=== PATIENT | male | born 1935 | race Caucasian/White ===

== ENCOUNTER 2024-05-05 17:02 | Emergency (ER) | payer OTHER, SELFPAY ==
[2024-05-05 17:11] VITALS: BP 172/73; PULSE 56; RESP 16; TEMP 36.7; O2SAT 97; BMI 25.1
--- NOTE | 2024-05-05 17:37 | EDNOTE_ITS ---
<Statement entered by Isela West MD - 05/08/24 14:04> As co-signing physician, I was present and available for consult prn. I concur with the plan and care as documented by the midlevel provider. Upper Extremity Injury RME/HPI General Chief Complaint: Hand/Wrist Problems Stated Complaint: removed scab on hand and now won't stop bleeding Time Seen by Provider: 05/05/24 17:08 Source: patient Arrival date/time: 05/05/24 17:02 This is a 88-year-old male who presented to the emergency department with complaints of a scab to his right dorsum of hand that has been bleeding for 1 day. He does report that a week ago he had the garbage can disposal slam on his arm causing a small laceration which has been bleeding. Denies any other pain or injury. He does report he is on aspirin 81 mg and drinks occasional 2 drinks alcoholic per night. Mode of arrival: wheelchair Related Data Allergies Allergy/AdvReac Type Severity Reaction Status Date / Time No Known Allergies Allergy Verified 05/05/24 17:05 Review of Systems Review of Systems Systems Reviewed: All systems reviewed, normal except as documented Narrative Review of Systems: Gen: No fever, no chills, no weight loss EYES: No discharge, no visual changes, no pain HEENT: No ear pain, no congestion, no sore throat PULM: No shortness of breath, no cough, no congestion CV: No chest pain, no dyspnea on exertion, no palpitations GI: No nausea, no vomiting, no diarrhea, no pain, no constipation : No frequency, no urgency,? no dysuria Musc/skel: No joint pain, no back pain Skin: No rash? Psyc: No hallucinations, no depression Heme/Lymph: No easy bleeding or bruising tendencies Neuro: No weakness, no headache ED Exam Narrative Physical exam: General: Sittiing in Exam table in no acute distress, answering questions appropriately HENT: normocephalic, atraumatic, EOMI, PERRLA, moist mucous membranes Chest: chest wall is nontender Cardiac: regular rate and rhythm, normal S1 and S2, no murmurs, rubs, or gallops, capillary refill ?2 seconds Pulmonary: clear to auscultation bilaterally, no wheezing, crackles, or rhonchi Abdominal: active bowel sounds, soft, nontender, nondistended Neuro: A&OX3, CN II-XII intact, sensation grossly intact bilaterally in UE and LE. Skin: Right dorsum hand punctacte lac Bleeding, controlled Ext: no lower extremity edema Course Quality Measures none Vital Signs Vital signs: Vital Signs Temperature 98.1 F 05/05/24 17:11 Pulse Rate 56 L 05/05/24 17:11 Respiratory Rate 16 05/05/24 17:11 Blood Pressure 172/73 H 05/05/24 17:11 Pulse Oximetry (%) 97 05/05/24 17:11 Oxygen Delivery Method Room Air 05/05/24 17:11 Extremity Injury MDM Narrative MDM Narrative:: Using sterile technique, patients wound cleansed, no anesthesia used. 0.5cm superficial wound clease with 150ml of normal saline, alllowed to dry, then used 3 steri strips with Dermabond for complete closure of wound. Patient tolerated procedure well. Patient data External records reviewed:: [facility] previous records Clinical information provided by:: patient Social determinants that could affect healthcare access:: none Patient has the following chronic illnesses:: no How is presenting disease/condition affected by chronic disease/condition?: no chronic disease Evaluation data The following diagnostics were reviewed and interpreted by me:: other (specify) Lab and/or radiology exams considered but not ordered:: no Interpretation Summary: no Medications / Prescriptions Medications or Prescriptions considered but not ordered:: no Medication administrations:: no Consultations Consultation(s) initiated? (list below): No Diagnosis Upper Extremity Injury Differential Diagnosis: sprain and strain of wrist, fracture of wrist and finger sprain Most likely diagnosis given after review of the tests above:: lac, bleeding Admission Indicated Admission indicated?: not indicated Admission Request Was there a request for admission?: No Disposition Plan Disposition Plan: Discharge Discharge Attestation Discharge Attestation: The patient and all family members were given an opportunity to ask questions and understood the discharge instructions. Discharge instructions specifically effects, indications for sooner follow up or return to the emergency department, and the expected course of current diagnosis. Patient condition: Stable Discharge Plan Plan Patient Disposition: HOME (Self Care) Patient condition on transfer: Stable Problem List Clinical Impression: Laceration of hand Patient/Caregiver Discharge Instructions Discharge Activity: activity as tolerated Education Materials: ED Laceration Small or ... Additional Instructions: Please do not pick or peel at the skin glue or Steri-Strips they will fall on its own. Follow-up with your primary doctor Return to the emergency department with any worsening symptoms any condition. Print Language: Latvian Stand Alone Forms: [facility] Award Info., Patient Portal Info Letter
== END 2024-05-05 18:06 | disposition home or self-care (01) ==
LOC: SERX 19:06
PROVIDERS: Emergency Provider Emergency Medicine
DX: S61.411A Laceration without foreign body of right hand, initial encounter (principal); X58.XXXA Exposure to other specified factors, initial encounter
CPT/HCPCS: 12001; 99283

== ENCOUNTER 2025-01-17 11:33 | Inpatient (IN) | payer OTHER, MEDICARE, SELFPAY ==
[2025-01-17] VITALS (13 sets, daily range): BP systolic 152–191; BP diastolic 58–88; PULSE 57–115; RESP 16–97; TEMP 36.8–38.8; O2SAT 91–96; BMI 24.3
--- NOTE | 2025-01-17 11:54 | PD.EDPED ---
ED General RME/HPI General Chief complaint: Nausea/Vomiting/Diarrhea Stated complaint: FEVER Time Seen by Provider: 01/17/25 12:02 Arrival date/time: 01/17/25 11:33 Related Data Allergies Allergy/AdvReac Type Severity Reaction Status Date / Time No Known Allergies Allergy Verified 05/05/24 17:05 Course Orders Category Date Time Status Bedside COVID-19 Antigen Test NOW Care 01/17/25 12:19 Active Bedside Influenza A&B Antigen Test NOW Care 01/17/25 12:20 Active EKG (ED ONLY) *Do not use* NOW Care 01/17/25 12:20 Active CXRP [XR chest 1V portable] Stat Exams 01/17/25 12:18 Ordered EKG (ED Only) Stat Exams 01/17/25 12:20 Ordered CBC Stat Lab 01/17/25 12:18 Ordered CMP [Comprehensive Metabolic Panel] Stat Lab 01/17/25 12:19 Ordered Lactic Acid [Lactate (Lactic Acid)] Stat Lab 01/17/25 12:19 Ordered Mag [Magnesium] Stat Lab 01/17/25 12:19 Ordered Troponin I Stat Lab 01/17/25 12:19 Ordered Urinalysis Stat Lab 01/17/25 12:19 Ordered Ondansetron Inj [Zofran Inj] Med 01/17/25 12:20 Once 4 mg IVP X1 ONE Vital Signs Vital signs: Vital Signs Temperature 99.5 F 01/17/25 11:38 Pulse Rate 113 H 01/17/25 11:38 Respiratory Rate 17 01/17/25 11:38 Blood Pressure 153/81 H 01/17/25 11:38 Pulse Oximetry (%) 95 01/17/25 11:38 Oxygen Delivery Method Room Air 01/17/25 11:38 MDM (ped) Medications Medication administrations:: Medication Administration History Ondansetron HCl (Ondansetron Inj 2 Mg/Ml Inj 2 Ml) 4 mg IVP X1 ONE; Protocol Stop: 01/17/25 12:21 Discharge Plan Patient/Caregiver Discharge Instructions Print Language: Irish
--- NOTE | 2025-01-17 12:18 | XR_ITS ---
EXAMINATION: AP chest single view TECHNIQUE: AP portable semiupright chest single view Date and time: January 17, 2025, 12:21 p.m. INDICATIONS: Cough and shortness of breath beginning 3 months ago FINDINGS: Mild prominence left ventricle CABG Mild vascular congestion. No lobar pneumonia or pulmonary edema IMPRESSION: Mild vascular congestion
--- NOTE | 2025-01-17 12:20 | EKG_ITS ---
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
--- NOTE | 2025-01-17 12:23 | PD.EDFEVER ---
ED Fever RME/HPI General Chief Complaint: Nausea/Vomiting/Diarrhea Stated Complaint: FEVER Time Seen by Provider: 01/17/25 12:02 Source: patient, RN notes reviewed and old records reviewed Arrival date/time: 01/17/25 11:33 Mode of arrival: EMS Limitations: no limitations RME / HPI complaint: fever Related Data Allergies Allergy/AdvReac Type Severity Reaction Status Date / Time No Known Allergies Allergy Verified 05/05/24 17:05 Review of Systems Review of Systems Systems Reviewed: All systems reviewed, normal except as documented Constitutional Constitutional: Reports as per HPI and Reports fever(s) Gastrointestinal Gastrointestinal: Reports system reviewed and no additional complaints, except as documented Genitourinary Genitourinary: Reports system reviewed and no additional complaints, except as documented Musculoskeletal Musculoskeletal: Reports system reviewed and no additional complaints, except as documented Neurologic Neurologic: Reports system reviewed and no additional complaints, except as documented Past Medical History Past Medical History CARDIAC: Positive Cardiac Disorders and Hypertension; Negative Congestive Heart Failure RESPIRATORY: Negative Chronic Obstructive Pulmonary Disease (COPD) GENITOURINARY: Positive Renal Disease ENDOCRINE: Negative Diabetes Mellitus Type 1 or Diabetes Mellitus Type 2 OTHER HISTORY: Positive Chemotherapy and Cancer (leukemia) Surgical History SURGICAL: Positive Cardiac Surgery, 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 Social History SMOKING STATUS: Never smoker Physical Exam General Limitations: no limitations General appearance: alert and in distress Head Head exam: atraumatic Eye Eye exam: Present normal appearance, PERRL and EOMI; Absent scleral icterus ENT ENT exam: Present normal exam, normal oropharynx and mucous membranes dry Neck Neck exam: Present normal inspection, full ROM and trachea midline Chest Chest inspection: Present normal inspection and symmetric chest wall rise Respiratory Respiratory exam: Present normal lung sounds bilaterally Cardiovascular Cardiovascular exam: Present normal rhythm, tachycardia and normal heart sounds Abdominal Exam Abdominal exam: Present soft and normal bowel sounds; Absent distention, tenderness, guarding or rebound Extremities Exam Extremities exam: Present normal inspection and full ROM Back Exam Back exam: Present normal inspection and full ROM Neurological Exam Neurological exam: Present alert and oriented X3; Absent motor sensory deficit Psychiatric Psychiatric exam: Present normal affect and normal mood Skin Skin exam: Present warm, dry and intact; Absent normal color, rash or cyanosis ED Exam General Limitations: Present no limitations General appearance: Present alert and in distress Head Head exam: Present atraumatic Eye Eye exam: Present normal appearance, PERRL and EOMI; Absent scleral icterus ENT ENT exam: Present normal exam, normal oropharynx and mucous membranes dry Neck Neck exam: Present normal inspection, full ROM and trachea midline Chest Chest inspection: Present normal inspection and symmetric chest wall rise Respiratory Respiratory exam: Present normal lung sounds bilaterally Cardiovascular Cardiovascular exam: Present normal rhythm, tachycardia and normal heart sounds Abdominal Exam Abdominal exam: Present soft and normal bowel sounds; Absent distention, tenderness, guarding or rebound Extremities Exam Extremities exam: Present normal inspection and full ROM Back Exam Back exam: Present normal inspection and full ROM Neurological Exam Neurological exam: Present alert and oriented X3; Absent motor sensory deficit Psychiatric Psychiatric exam: Present normal affect and normal mood Skin Skin exam: Present warm, dry and intact; Absent normal color, rash or cyanosis Course Course Course Narrative: 1511: Sepsis alert initiated. Orders made at this time are congruent with ED Adult Sepsis Order List. Re-evaluation is to be completed. Sepsis IVF not administered due to the patient being in CHF. Patient received 500mL NS IVF (infused at 1715). Quality Measures Possible source: unknown Blood cultures ordered: yes Antibiotic ordered: Yes Pertinent labs: 01/17/25 12:55 Lactic Acid 1.2 mMol/L (0.4-2.0) Procalcitonin 1.16 H ng/ml (0.0-0.49) sepsis Orders Category Date Time Status Admit to Inpatient Status Routine Admission 01/17/25 17:28 Active Patient Condition Routine Admission 01/17/25 17:27 Ordered Activity as Tolerated Routine Care 01/17/25 17:31 Ordered Bedside COVID-19 Antigen Test NOW Care 01/17/25 12:19 Active COVID-19 Screening Questionnaire NOW Care 01/17/25 16:01 Active Continuous Pulse Oximetry NOW Care 01/17/25 17:33 Active Decision to Admit X1 Care 01/17/25 16:00 Completed EKG (ED ONLY) *Do not use* NOW Care 01/17/25 12:20 Completed Insert IV NOW Care 01/17/25 16:16 Active Notify provider NEEDED Care 01/17/25 17:27 Active Obtain weight NOW Care 01/17/25 17:27 Active Straight [In and Out Catheter] X1 Care 01/17/25 12:22 Active Strict Intake and Output Routine Care 01/17/25 17:35 Ordered CXRP [XR chest 1V portable] Stat Exams 01/17/25 12:18 Completed EKG (ED Only) Stat Exams 01/17/25 12:20 Draft ABG [Arterial Blood Gas] Routine Lab 01/17/25 15:32 Completed BNP [B-Type Natriuretic Peptide] Routine Lab 01/17/25 12:55 Completed Blood Culture (Lab) Stat Lab 01/17/25 16:10 Received CBC AM DRAW Lab 01/18/25 05:00 Ordered CBC AM DRAW Lab 01/19/25 05:00 Ordered CBC AM DRAW Lab 01/20/25 05:00 Ordered CBC Stat Lab 01/17/25 12:55 Completed CMP [Comprehensive Metabolic Panel] Stat Lab 01/17/25 12:55 Completed Comprehensive Metabolic Panel AM DRAW Lab 01/18/25 05:00 Ordered Comprehensive Metabolic Panel AM DRAW Lab 01/19/25 05:00 Ordered Comprehensive Metabolic Panel AM DRAW Lab 01/20/25 05:00 Ordered Creatinine,Random Urine Routine Lab 01/17/25 15:57 Completed Electrolytes, Urine Random Routine Lab 01/17/25 15:57 Completed Influenza A & B Rapid Panel Stat Lab 01/17/25 13:37 Completed Lactic Acid [Lactate (Lactic Acid)] Stat Lab 01/17/25 12:55 Completed Mag [Magnesium] Stat Lab 01/17/25 12:55 Completed Magnesium AM DRAW Lab 01/18/25 05:00 Ordered Magnesium AM DRAW Lab 01/19/25 05:00 Ordered Magnesium AM DRAW Lab 01/20/25 05:00 Ordered Phosphorous AM DRAW Lab 01/18/25 05:00 Ordered Phosphorous AM DRAW Lab 01/19/25 05:00 Ordered Phosphorous AM DRAW Lab 01/20/25 05:00 Ordered Prothrombin Time with INR AM DRAW Lab 01/18/25 05:00 Ordered Sed Rate (ESR) Stat Lab 01/17/25 12:55 Completed Thyroid Stimulating Hormone AM DRAW Lab 01/18/25 05:00 Ordered Troponin I Stat Lab 01/17/25 12:55 Completed Urinalysis Stat Lab 01/17/25 15:57 Completed Acetaminophen Tab [Tylenol Tab] Med 01/17/25 17:27 Active 650 mg PO Q6H PRN Acetaminophen Tab [Tylenol Tab] Med 01/17/25 15:59 Discontinued 975 mg PO X1 ONE Docusate Sod [Colace] Med 01/17/25 17:45 Active 100 mg PO QDAY Doxycycline Inj [Vibramycin Inj] 100 mg Med 01/17/25 21:00 Active Sodium Chloride 0.9% (Pop) [NS 0.9% mini bag] 100 ml IV BID Famotidine [Pepcid] Med 01/17/25 21:00 Active 20 mg PO BID Heparin Inj Med 01/17/25 21:00 Active 5,000 unit SC Q12HR Ondansetron Inj [Zofran Inj] Med 01/17/25 17:33 Active 4 mg IVP Q6H PRN Ondansetron Inj [Zofran Inj] Med 01/17/25 12:20 Discontinued 4 mg IVP X1 ONE Piper/Tazo 3.375 gm Premix [Zosyn] Med 01/17/25 16:00 Discontinued 3.375 gm in 50 ml IV X1 Sodium Chloride 0.9% 500 ml [Ns] 500 ml Med 01/17/25 15:59 Discontinued IV 999 mls/hr cefTRIAXone/D5w 1gm IV premix [Rocephin/D5w 1gm IV Med 01/18/25 09:00 Active premix] 1 gm in 50 ml IV QDAY cefTRIAXone/D5w 1gm IV premix [Rocephin/D5w 1gm IV Med 01/17/25 15:58 Discontinued premix] 1 gm in 50 ml IV X1 Code Status Routine Oth 01/17/25 17:27 Ordered Oxygen Delivery PRN RT 01/17/25 17:27 Active Vital Signs Vital signs: Vital Signs Temperature 99.5 F 01/17/25 11:38 Pulse Rate 113 H 01/17/25 11:38 Respiratory Rate 17 01/17/25 11:38 Blood Pressure 153/81 H 01/17/25 11:38 Pulse Oximetry (%) 95 01/17/25 11:38 Oxygen Delivery Method Room Air 01/17/25 11:38 Fever MDM Narrative MDM Narrative:: Safety net established and ECG retrieved showing no evidence of STEMI or significant ST depressions, q waves, or T wave inversion.? Labs ordered to include CBC to look for anemia, CMP to look for electrolyte normality, urinalysis with source of infection, chest x-ray to rule out pneumonia. Please see HPI and review of systems for further need for chest x-ray Patient is started on IV fluids for dehydration Zofran for nausea. Differential diagnosis-see MDM time - Sepsis Alert Patient data External records reviewed:: [facility] previous records (Seen and April 2024 for laceration to his hand.) Clinical information provided by:: patient Social determinants that could affect healthcare access:: none Patient has the following chronic illnesses:: See [facility] How is presenting disease/condition affected by chronic disease/condition?: exacerbated by Evaluation data The following diagnostics were reviewed and interpreted by me:: lab results, radiology exam(s) and EKG tracing(s) Lab and/or radiology exams considered but not ordered:: None Interpretation Summary: See [facility] Medications / Prescriptions Medications or Prescriptions considered but not ordered:: None Medication administrations:: Medication Administration History Acetaminophen (Acetaminophen 325 Mg Tablet) 650 mg PO Q6H PRN PRN Reason: Fever >100.4, mild pain 1-3 Stop: 02/16/25 17:26 Hydrocodone Bitart/Acetaminophen (Hydrocodone/Apap 5/325 Tablet) 1 tab PO X1 PRN PRN Reason: mod - severe pain (4-10) Stop: 01/22/25 17:43 Docusate Sodium (Docusate Sod 100 Mg Capsule) 100 mg PO QDAY [facility]; Protocol Stop: 02/16/25 17:44 Last Admin: 01/17/25 18:37 Dose: 100 mg Documented By: ANNELIESE Famotidine (Famotidine 20 Mg Tablet) 20 mg PO BID [facility] Stop: 02/16/25 20:59 Heparin Sodium (Porcine) (Heparin Sod Inj 5000 Unit/Ml Vial) 5,000 unit SC Q12HR YELENA Stop: 01/31/25 20:59 Ceftriaxone Sodium/Dextrose (Rocephin/D5w 1gm Iv Premix) 1 gm in 50 mls @ 100 mls/hr IV QDAY [facility] Stop: 01/25/25 08:59 Doxycycline Hyclate 100 mg/ (Sodium Chloride) 100 mls @ 100 mls/hr IV BID [facility] Stop: 01/24/25 20:59 Ondansetron HCl (Ondansetron Inj 2 Mg/Ml Inj 2 Ml) 4 mg IVP Q6H PRN; Protocol PRN Reason: NAUSEA OR VOMITING Stop: 02/16/25 17:32 Discontinued Medications Acetaminophen (Acetaminophen 325 Mg Tablet) 975 mg PO X1 ONE Stop: 01/17/25 16:00 Last Admin: 01/17/25 16:17 Dose: 975 mg Documented By: ANNELIESE Amlodipine Besylate (Amlodipine Besylate 5 Mg Tablet) 5 mg PO X1 YELENA Stop: 01/17/25 17:46 Ceftriaxone Sodium/Dextrose (Rocephin/D5w 1gm Iv Premix) 1 gm in 50 mls @ 100 mls/hr IV X1 ONE Stop: 01/17/25 16:27 Last Infusion: 01/17/25 17:13 Dose: Infused Documented By: Admin: 01/17/25 16:20 Dose: 100 mls/hr Documented By: ANNELIESE Sodium Chloride (Ns) 500 mls @ 999 mls/hr IV .Q31M ONE Stop: 01/17/25 16:29 Last Infusion: 01/17/25 17:15 Dose: Infused Documented By: Admin: 01/17/25 16:20 Dose: 999 mls/hr Documented By: ANNELIESE Piperacillin/Tazobactam/Dextrose (Zosyn) 3.375 gm in 50 mls @ 100 mls/hr IV X1 ONE; Protocol Stop: 01/17/25 16:29 Last Infusion: 01/17/25 18:13 Dose: Infused Documented By: Admin: 01/17/25 17:18 Dose: 100 mls/hr Documented By: ANNELIESE Levothyroxine Sodium (Levothyroxine Sodium 25 Mcg Tablet) 75 mcg PO X1 ONE Stop: 01/17/25 17:45 Last Admin: 01/17/25 18:36 Dose: 75 mcg Documented By: ANNELIESE Metoprolol Succinate (Metoprolol Succinate Xl 25 Mg Tabcr) 50 mg PO X1 ONE Stop: 01/17/25 17:46 Last Admin: 01/17/25 18:37 Dose: 50 mg Documented By: ANNELIESE Ondansetron HCl (Ondansetron Inj 2 Mg/Ml Inj 2 Ml) 4 mg IVP X1 ONE; Protocol Stop: 01/17/25 12:21 Last Admin: 01/17/25 12:47 Dose: 4 mg Documented By: BY Diagnosis Fever Differential Diagnosis: fever of unknown origin, gastroenteritis, community acquired pneumonia, viral infection, sepsis, influenza and other (Electrolyte abnormality) Critical Care Time Critical Care Time Critical Care Time: Yes Total Critical Care Time (min.): 40 Attestation: The high probability of sudden, clinically significant deterioration in the patient?s condition required the highest level of my preparedness to intervene urgently. The services I provided to this patient were to treat and/or prevent clinically significant deterioration. Services included the following: chart data review, reviewing nursing notes and/or old charts, documentation time, workday consultant collaboration regarding findings and treatment options, medication orders and management, direct patient care, vital sign assessments and ordering, interpreting and reviewing diagnostic studies and lab tests. Aggregate critical care time includes only time during which I was engaged in work directly related to the patient?s care, as described above, whether at bedside or elsewhere in the Emergency Department. It did not include time spent performing other reported procedures or the services of residents, students, nurses or physician assistants.
[2025-01-17] MEDS: ONDANSETRON INJ 2 MG/ML INJ 2 ML 4 MG IVP (12:47)
[2025-01-17 13:09] LABS: Lactate (Lactic Acid) 1.2 mMol/L (0.4-2.0)
[2025-01-17 13:12] LABS: Basophils # (Auto) 0.0 Thou/mm3 (0.0-0.2); Basophils % (Auto) 0 % (0-2.5); Eosinophils # (Auto) 0.0 Thou/mm3 (0.0-0.5); Eosinophils % (Auto) 0 % (0-10); Hematocrit 34.5 % (41.0-53.0); Hemoglobin 10.6 g/dL (13.5-16.0); Immature Granulocytes Auto 0.07 Thou/mm3 (0.00-0.00); Lymphocytes # (Auto) 0.1 Thou/mm3 (1.0-4.8); Lymphocytes % (Auto) 1 % (10-50); Mean Corpuscular HGB Conc 30.7 g/dl (31.0-37.0); Mean Corpuscular Hemoglobin 25.0 pg (25.0-35.0); Mean Corpuscular Volume 81 fL (80-100); Monocytes # (Auto) 0.7 Thou/mm3 (0.0-0.8); Monocytes % (Auto) 6 % (0-12); Neutrophils # (Auto) 12.1 Thou/mm3 (1.8-7.7); Neutrophils % (Auto) 93 % (37-80); Nucleated Red Blood Cell # 0.00 Thou/mm3 (0.00-0.00); Nucleated Red Blood Cell % 0 /100 WBC (0); Platelet Count 225 Thou/mm3 (140-440); RDW Standard Deviation 65.3 fL (35.1-43.9); Red Blood Count 4.24 Miln/mm3 (4.50-5.90); White Blood Count 13.0 Thou/mm3 (3.8-10.6)
[2025-01-17 13:42] LABS: Alanine Aminotransferase < 7 U/L (10-49); Albumin, Serum 3.6 gm/dL (3.4-4.8); Albumin/Globulin Ratio 1.7 (1.2-2.2); Alkaline Phosphatase 50 U/L (46-116); Anion Gap 13 (7-16); Aspartate Amino Transferase 18 U/L (0-34); BUN/Creatinine Ratio 14 Ratio (12-20); Bilirubin,Total 0.4 mg/dL (0.3-1.2); Blood Urea Nitrogen 46 mg/dL (9-23); Calcium 9.1 mg/dL (8.3-10.6); Calcium (Corrected) 9.4 mg/dL (8.5-10.1); Carbon Dioxide 23.8 mMol/L (20.0-31.0); Chloride 102 mMol/L (98-107); Creatinine (Component) 3.2 mg/dL (0.6-1.3); Estimated Creatinine Clearance 14.6 mL/min (>60); Globulin 2.1 gm/dL (2.3-3.5); Glucose 109 mg/dL (74-106); Magnesium 1.5 mg/dL (1.6-2.6); Osmolality,Calculated 290 (275-295); Potassium 4.1 mMol/L (3.4-5.1); Sodium 139 mMol/L (136-145); Total Protein 5.7 gm/dL (5.7-8.2); Troponin I < 0.020 ng/mL (0.0-0.045); eGFR 18 See Note
[2025-01-17 14:17] LABS: Influenza A Ag Negative; Influenza B Ag Negative
[2025-01-17 15:38] LABS: Base Excess 0 (-3-3); HCO3 23 mEq/L (20-26); Inspired Oxygen, FIO2 21 %; O2 Saturation 93 % (91-98); PCO2 34 mmHg (32.0-48.0); PO2 65 mmHg (83-108); pH, Arterial 7.44 (7.35-7.45)
[2025-01-17 15:39] LABS: Allen Test Performed/OK; Puncture Site Right Radial
[2025-01-17 16:00] LABS: Collection Type, Urine Voided; WBC,Urine 0 /hpf (0-5)
[2025-01-17 16:09] LABS: B-Type Natriuretic Peptide 621 pg/mL (0-100)
[2025-01-17] MEDS: ACETAMINOPHEN 325 MG TABLET 975 MG PO (16:17)
[2025-01-17] MEDS: SODIUM CHLORIDE 0.9% 500 ML 500 ML 999 ML IV (16:20)
[2025-01-17] MEDS: cefTRIAXone/D5w 1gm IV premix 1 GM/50 ML BAG IV (16:20)
[2025-01-17 16:28] LABS: Bilirubin,Urine Negative (Negative); Blood,Urine Negative (Negative); Clarity,Urine Clear (Clear/Hazy); Color,Urine Lt-Yellow (Lt Yel-Yel); Glucose, Urine Negative (Negative); Hyaline Casts,Urine < 1 /hpf (0-1); Ketones,Urine Negative (Negative); Leukocyte Esterase,Urine Negative (Negative); Nitrite,Urine Negative (Negative); PH,Urine 6.5 (5.0-7.0); Protein,Urine 2+ (Neg - Trace); RBC,Urine 1 /hpf (0-3); Specific Gravity,Urine 1.017 (1.001-1.035); Squamous Epithelial Cell,Urine 1 /hpf (0-5); Urobilinogen,Urine Negative mg/dL (0.0-1.0)
[2025-01-17] MEDS: PIPER/TAZO 3.375 GM PREMIX 3.375 GM/50 ML BAG IV (17:18)
--- NOTE | 2025-01-17 17:27 | ESHP_ITS ---
<Statement entered by Barber Garcia MD - 01/17/25 20:29> I saw and examined patient personally and supervised PGY 1 resident, Dr. Vigil with formulating a management plan. I agree with the documentation with the exceptions as listed below. Patient is a 89-year-old male past medical history significant for primary hypertension, hypothyroidism, CKD follows with Dr. Gloria, myelodysplastic syndrome follows with Dr. Olivares,? CHF, paroxysmal atrial fibrillation amiodarone who presented today with a chief complaint of chills and left arm pain. Problem list: 1. SIRS 2. Myelodysplastic syndrome 3. Paroxysmal atrial fibrillation 4. CKD 5. Hypothyroidism 6. CAD s/p CABG 7. Chronic alcohol use Patient said he developed violent rigors this a.m. which woke him up from sleep and this prompted him to present to the emergency department. Upon arrival patient was hypertensive BP 153/81, pulse 113 and temp 101.9. Labs showed WBC 13, Hb 10.6, BUN 46, CR 3.2 BNP 621. His urinalysis was bland. Abdominal ultrasound was significant for mild hepatomegaly and moderate stool in colon. Chest x-ray showed mild vascular congestion bilaterally. Patient's currently has a Holter monitor for the past week which was placed by his outpatient clay structure builder and servicer Dr. Benjamin for atrial fibrillation. He also follows up with heme oncologist Dr. Olivares and has monthly infusions for the first 5 days of the month since 5 years. This is for his myelodysplastic syndrome. He also follows up with manager life, Dr. Gloria for weekly Retacrit due to his anemia. Incidentally on November 14 patient had a ground-level fall and presented to the ED. X-rays L-spine at that time showed compression fracture of L2. Severe multilevel DJD. 4 mm anterior subluxation of L5 on L5. Patient also endorses drinking 2 beers per night. We will treat with pain control for his fracture and place lorazepam as needed possible withdrawal. Patient also started on thiamine 100 mg p.o. daily. Empirically patient will be started on ceftriaxone and doxycycline for possible community-acquired pneumonia. We also ordered a cocci serology as patient is immunosuppressed and has fevers with no definitive source at this point. Blood cultures were ordered. Plan of care discussed with Attending Dr. Abelardo Garcia MD PGY 2 Disclaimer: This note was dictated by speech recognition. Minor errors in internal controls consultant may be present due to voice recognition software. Documentation for date of: 01/17/25 HPI History of Present Illness Chief complaint: fever History of present illness: 89 yo male PMHx: HTN, hypothyroidism, CKD, MDS and CHF? presents to ED with nausea, vomiting, and diarrhea. In the ED, Vitasl showing hypertensive at 160/60, labs notable WBC 13.0, Hbg 10.6, Hct 34.5. D-dimer 2690. BMP BUN 46, Cr 3.2. eGFR 18. CRP 1.5, Pro-Richard 1.16. BNP 621. 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 Patient admitted for ANTHONY. Information Technology Technician: Dr. Rangel. Hooker Machine Tender Dr. Benjamin. Oncologist: Dr. Olivares. Meds: norvasc 5 daily, metop succ XL 50 daily, levothyroxine 75 mcg QAM, lisinopril 40 BID, furosemide 40 every other daily and norco 5 ALL: NKDA SH: drinks occionally 2 beers a night ROS: nausea, vomiting, diarrhea Review of Systems Review of Systems Systems Reviewed: All systems reviewed, normal except as documented Narrative Review of Systems: Refer to HPI Exam Vital Signs Temp Pulse Resp BP Pulse Ox O2 Del Method 99.8 F 101 H 18 171/64 H 92 L Room Air 01/17/25 17:18 01/17/25 16:01 01/17/25 16:01 01/17/25 16:01 01/17/25 16:01 01/17/25 16:01 Narrative Exam General: No acute distress, well nourished Eye: PERRL, EOMI, normal conjunctiva, no scleral icterus HENT: Normocephalic, atraumatic, normal hearing, pink and moist mucous membranes, no oral lesions in mouth, throat shows no erythema Neck: Supple, non-tender, no JVD, no lymphadenopathy Lungs: Clear to auscultation bilaterally, non-labored respirations, symmetric chest rise, no use of accessory muscles Heart: Normal S1 and S2, no S3 or S4 appreciated. Normal rate and regular rhythm, no murmurs, rubs gallops, or edema. Peripheral pulses intact bilaterally, capillary refill brisk distally Abdomen: Soft, TTP LUQ, non-distended, normal bowel sounds. No guarding or rebound tenderness. Musculoskeletal: Normal range of motion and strength. LUE shows redness and swelling alogn with induration near medial elbow. Skin: Skin is warm, dry,bilateral hyperpigmentation of upper limbs Neurologic: Alert, awake and oriented x3. CN II-XII grossly intact. No focal neuro deficits. No signs of meningeal irritation noted. Psychiatric: Cooperative, appropriate mood and affect Results: Labs 01/19/25 05:15 01/19/25 05:15 Labs: Short CBC 01/17/25 Range/Units 12:55 WBC 13.0 H (3.8-10.6) Thou/mm3 Hgb 10.6 L (13.5-16.0) g/dL Hct 34.5 L (41.0-53.0) % Plt Count 225 (140-440) Thou/mm3 BMP 01/17/25 12:55 Sodium 139 Potassium 4.1 Chloride 102 Carbon Dioxide 23.8 BUN 46 H Creatinine 3.2 H Glucose 109 H Calcium 9.1 Cardiac Enzymes 01/17/25 Range/Units 12:55 Troponin I < 0.020 (0.0-0.045) ng/mL Liver Function 01/17/25 Range/Units 12:55 Total Bilirubin 0.4 (0.3-1.2) mg/dL AST 18 (0-34) U/L ALT < 7 L (10-49) U/L Alkaline Phosphatase 50 (46-116) U/L Albumin 3.6 (3.4-4.8) gm/dL Urine 01/17/25 Range/Units 15:57 Urine Color Lt-Yellow (Lt Yel-Yel) Urine Clarity Clear (Clear/Hazy) Urine pH 6.5 (5.0-7.0) Ur Specific Robbins 1.017 (1.001-1.035) Urine Protein 2+ A (Neg - Trace) Urine Glucose (UA) Negative (Negative) ABG Interpretation ABG results: 01/17/25 15:32 ABG pH 7.44 ABG pCO2 34 ABG pO2 65 L ABG HCO3 23 ABG O2 Saturation 93 ABG Base Excess 0 Quality Measures Quality Measures none Advance care planning discussed with:: patient Medications Home Medications and Allergies Home Medications ?Medication ?Instructions ?Recorded ?Confirmed ?Type amlodipine 5 mg tablet 5 mg PO QDAY 01/17/25 History atorvastatin 40 mg tablet 40 mg PO QDAY 01/17/2501/17 History furosemide 40 mg tablet 40 mg PO QDAY 01/17/2501/17 History hydrocodone 5 mg-acetaminophen 325 1 tab PO PRN PRN pa in (scale score 01/17/25 01/17/25 History mg tablet 4-6) levothyroxine 75 mcg tablet 75 mcg PO QDAY 01/17/25 History lisinopril 40 mg tablet 40 mg PO QDAY 01/17/2501/17 History sodium bicarbonate 650 mg tablet 650 mg PO BID 5 01/17/25 History Allergies Allergy/AdvReac Type Severity Reaction Status Date / Time No Known Allergies Allergy Verified 05/05/24 17:05 Visit Medications Discontinued Medications Acetaminophen (Acetaminophen 325 Mg Tablet) 975 mg PO X1 ONE Stop: 01/17/25 16:00 Last Admin: 01/17/25 16:17 Dose: 975 mg Ceftriaxone Sodium/Dextrose (Rocephin/D5w 1gm Iv Premix) 1 gm in 50 mls @ 100 mls/hr IV X1 ONE Stop: 01/17/25 16:27 Last Infusion: 01/17/25 17:13 Dose: Infused Sodium Chloride (Ns) 500 mls @ 999 mls/hr IV .Q31M ONE Stop: 01/17/25 16:29 Last Infusion: 01/17/25 17:15 Dose: Infused Piperacillin/Tazobactam/Dextrose (Zosyn) 3.375 gm in 50 mls @ 100 mls/hr IV X1 ONE; Protocol Stop: 01/17/25 16:29 Last Admin: 01/17/25 17:18 Dose: 100 mls/hr Ondansetron HCl (Ondansetron Inj 2 Mg/Ml Inj 2 Ml) 4 mg IVP X1 ONE; Protocol Stop: 01/17/25 12:21 Last Admin: 01/17/25 12:47 Dose: 4 mg Assessment & Plan Plan 89 yo male PMHx: HTN, hypothyroidism, CKD, MDS and CHF? presents to ED with nausea, vomiting, and diarrhea. Patient admitted for ANTHONY. #SIRS Postitive #ANTHONY on CKD In ED, labs showed WBC 13.0, BUN 46, Cr 3.2 Unsure of baseline Information Technology Technician: Dr. Rangel Inflammatory markers increased, CRP 1.5, Pro-Richard 1 - qAM CMP - started rocephin 1g daily, doxy 100 IV BID #Cellulitis? In ED, UE shows induration and swelling - US shows no signs of DVT - CTM #CHF? Hooker Machine Tender Dr. Benjamin BNP 624 K > 4, Mg > 2 Strict I&Os - restarted metop succ XL - fluid restriction 1500mL - CTM clinically - pending echo #A-fib current home med amio 200 PO daily - waiting on med rec, hold amio - pending TSH - considering cards consult #HTN - restarted meds metop succ XL 50mg daily #hypothyroidism - restarted levothyroxine 75mcg #MDS Oncologist: Dr. Olivares. - qAM CBC - reach out to oncologist #alcohol misuse disorder - thiamine 100 PO daily Checklist: Admit: Med Tele Diet: cardiac PUD PPX: famotidine 20 BID VTE PPX: hep 5K BID Code: FULL CODE Case was discussed with Attending Dr. Zhou, and Senior Resident Dr. Jose Vigil DO PGY-1 Attending Provider Attestation/Addendum I or my resident physicians have discussed care with the ED physician and I have made the decision to admit. I have discussed and was present for the essential components of the history, physical examination, diagnosis, and treatment plan with the resident. I agree with the patient's care as documented by the resident and amended herein by me. Kavon Zhou DO. Although this document has been carefully reviewed, there may still be some phonetic and other typographical errors. These errors are purely grammatical due to imperfections in the software program and should not be construed in any way to compromise the substance of the patient's medical care during this visit.
--- NOTE | 2025-01-17 17:41 | XR_ITS ---
Examination: Venous duplex upper extremity sonogram, bilateral. Date and time of exam: January 17, 2025, 1745 hours INDICATIONS: Arm pain beginning today Technique: Multiple sonographic images of the deep venous system have been obtained. B-mode/2-D grayscale imaging of vascular structures and Doppler spectral analysis (waveforms) and color performed Both legs are examined. Findings: Deep venous systems do not demonstrate abnormal echogenicity. All visualized deep veins exhibit compressibility. All visualized deep veins exhibit augmentation. Impression: Negative for deep vein thrombosis
--- NOTE | 2025-01-17 17:53 | XR_ITS ---
Examination: Abdomen sonogram, complete Date and time of exam: January 17, 2025, 1835 hours INDICATIONS: Chronic kidney disease diagnosis years, history splenomegaly. Technique: Multiple real-time grayscale transabdominal sonographic images of the abdomen have been obtained. 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
[2025-01-17 18:16] LABS: C-Reactive Protein 1.5 mg/dL (0.0-0.9); Procalcitonin 1.16 ng/ml (0.0-0.49)
[2025-01-17 18:23] LABS: Sed Rate (ESR) 30 mm/hr (0-20)
[2025-01-17 18:31] LABS: Chloride,Urine Random 66.8 mMol/L (55.0-125.0); Creatinine,Random Urine 74 mg/dL (30-125); Potassium,Urine Random 61 mMol/L (12-62); Sodium,Urine Random 63.2 mMol/L (20.0-110.0)
[2025-01-17] MEDS: LEVOTHYROXINE SODIUM 25 MCG TABLET 75 MCG PO (18:36)
[2025-01-17] MEDS: METOPROLOL SUCCINATE XL 25 MG TABCR 50 MG PO (18:37)
[2025-01-17] MEDS: DOCUSATE SOD 100 MG CAPSULE PO (18:37)
[2025-01-17 18:42] LABS: D-Dimer 2690 ng/mL (<600)
[2025-01-17 19:05] LABS: Mono Screen Negative (Negative)
[2025-01-17] MEDS: THIAMINE 100 MG TABLET PO (19:36)
--- NOTE | 2025-01-17 20:02 | PC.NURSE ---
REPORT GIVEN TO PARMJIT, FLOOR NURSE
[2025-01-17] MEDS: HEPARIN SOD INJ 5000 UNIT/ML VIAL SC (21:42)
[2025-01-17] MEDS: DOXYCYCLINE INJ 100 MG in SODIUM CHLORIDE 0.9% (POP) 100 ML IV (21:45)
[2025-01-17] MEDS: FAMOTIDINE 20 MG TABLET PO (21:46)
[2025-01-18] VITALS (10 sets, daily range): BP systolic 147–174; BP diastolic 63–91; PULSE 53–74; RESP 16–96; TEMP 36.1–36.7; O2SAT 93–97
[2025-01-18] MEDS: LEVOTHYROXINE SODIUM 25 MCG TABLET 75 MCG PO (05:52)
[2025-01-18 06:11] LABS: Basophils # (Auto) 0.1 Thou/mm3 (0.0-0.2); Basophils % (Auto) 0 % (0-2.5); Eosinophils # (Auto) 0.0 Thou/mm3 (0.0-0.5); Eosinophils % (Auto) 0 % (0-10); Hematocrit 31.1 % (41.0-53.0); Hemoglobin 9.1 g/dL (13.5-16.0); Immature Granulocytes Auto 0.04 Thou/mm3 (0.00-0.00); Lymphocytes # (Auto) 0.3 Thou/mm3 (1.0-4.8); Lymphocytes % (Auto) 3 % (10-50); Mean Corpuscular HGB Conc 29.3 g/dl (31.0-37.0); Mean Corpuscular Hemoglobin 24.3 pg (25.0-35.0); Mean Corpuscular Volume 83 fL (80-100); Monocytes # (Auto) 0.6 Thou/mm3 (0.0-0.8); Monocytes % (Auto) 5 % (0-12); Neutrophils # (Auto) 11.2 Thou/mm3 (1.8-7.7); Neutrophils % (Auto) 92 % (37-80); Nucleated Red Blood Cell # 0.00 Thou/mm3 (0.00-0.00); Nucleated Red Blood Cell % 0 /100 WBC (0); Platelet Count 204 Thou/mm3 (140-440); RDW Standard Deviation 67.7 fL (35.1-43.9); Red Blood Count 3.75 Miln/mm3 (4.50-5.90); White Blood Count 12.2 Thou/mm3 (3.8-10.6)
[2025-01-18 06:23] LABS: INR 1.3 (0.9-1.3); Prothrombin Time 13.1 Seconds (9.0-12.2)
--- NOTE | 2025-01-18 06:27 | PC.NURSE ---
Called Dr. Ruby to ask if they wanted to put pt on a CIWA protocol since they added x1 lorazepam and put pt on thiamine, Per Dr. Ruby, they will leave the order they way it is and wait for day team.
[2025-01-18 06:39] LABS: Alanine Aminotransferase < 7 U/L (10-49); Albumin, Serum 3.1 gm/dL (3.4-4.8); Albumin/Globulin Ratio 1.4 (1.2-2.2); Alkaline Phosphatase 40 U/L (46-116); Anion Gap 11 (7-16); Aspartate Amino Transferase 15 U/L (0-34); BUN/Creatinine Ratio 15 Ratio (12-20); Bilirubin,Total 0.3 mg/dL (0.3-1.2); Blood Urea Nitrogen 48 mg/dL (9-23); Calcium 8.8 mg/dL (8.3-10.6); Calcium (Corrected) 9.5 mg/dL (8.5-10.1); Carbon Dioxide 24.4 mMol/L (20.0-31.0); Chloride 103 mMol/L (98-107); Creatinine (Component) 3.3 mg/dL (0.6-1.3); Estimated Creatinine Clearance 14.2 mL/min (>60); Globulin 2.2 gm/dL (2.3-3.5); Glucose 137 mg/dL (74-106); Magnesium 1.6 mg/dL (1.6-2.6); Osmolality,Calculated 290 (275-295); Phosphorous 4.5 mg/dL (2.4-5.1); Potassium 3.8 mMol/L (3.4-5.1); Sodium 138 mMol/L (136-145); Thyroid Stimulating Hormone 3.08 uIU/mL (0.55-4.78); Total Protein 5.3 gm/dL (5.7-8.2); eGFR 17 See Note
--- NOTE | 2025-01-18 07:00 | ECHO_ITS ---
Transthoracic Echo Report Ht (in): 67 Wt (lb): 155 Exam Location: [id number] Status: Inpatient Associate Professor Of Musicology: Gillian Clemons Indications: Procedure Performed: BP: 147 / 63 HR: 50 MEASUREMENTS (Male / Female) Normal Values 2D ECHO LV Diastolic Diameter PLAX 5.6 cm 4.2 - 5.9 / 3.9 - 5.3 cm LV Systolic Diameter PLAX 4.1 cm IVS Diastolic Thickness 1.0 cm 0.6 - 1.0 / 0.6 - 0.9 cm LVPW Diastolic Thickness 1.7 cm 0.6 - 1.0 / 0.6 - 0.9 cm LV Relative Wall Thickness 0.5 LVOT Diameter 1.9 cm LA Volume Index 41.1 cm?/m? 16 - 28 cm?/m? Ascending Aorta Diameter 3.5 cm M-MODE AV Cusp Separation MM 1.5 cm DOPPLER AV Peak Velocity 228.0 cm/s AV Peak Gradient 20.8 mmHg AV Mean Gradient 10.0 mmHg AV Velocity Time Integral 61.5 cm LVOT Peak Velocity 95.3 cm/s LVOT Peak Gradient 3.6 mmHg LVOT Velocity Time Integral 23.5 cm LVOT Cardiac Index 1819.8 cm?/min?m? AV Area Cont Eq vti 1.1 cm? AV Area Cont Eq pk 1.2 cm? MV Area PHT 3.7 cm? Mitral E Point Velocity 91.7 cm/s Mitral A Point Velocity 79.5 cm/s Mitral E to A Ratio 1.2 LV E' Lateral Velocity 6.5 cm/s Mitral E to LV E' Lateral Ratio 14.0 LV E' Septal Velocity 3.5 cm/s Mitral E to LV E' Septal Ratio 26.4 TR Peak Velocity 253.7 cm/s TR Peak Gradient 25.7 mmHg PV Peak Velocity 96.4 cm/s PV Peak Gradient 3.7 mmHg FINDINGS Left Ventricle Normal left ventricular size, wall thickness, systolic function with no obvious regional wall motion abnormalities. Normal left ventricular diastolic filling pattern for age. The ejection fraction is visually estimated at 50-55%. Right Ventricle The right ventricle is normal in size and systolic function. The estimated right ventricular systolic pressure,32 mmHg with RAP 3. Mild HTN Left Atrium The left atrial cavity size is moderately increased. Right Atrium The right atrial cavity size is mildly increased. Atrial Septum The interatrial septum appears normal with no evidence of a shunt. Aorta The aorta is normal by two-dimensional, color flow and Doppler interrogation. Mitral Valve Mild thickening of the mitral valve leaflets. [id number] mitral regurgitation. Aortic Valve Mildly sclerotic without stenosis Tricuspid Valve The tricuspid valve is normal by two-dimensional, color flow and Doppler interrogation. There is mild to moderate tricuspid valve regurgitation. Pulmonic Valve The pulmonic valve is not well visualized. There is no significant pulmonic valve regurgitation. Vessels The pulmonary artery appears normal. The inferior vena cava pulmonary and hepatic veins appear normal. Pericardium The pericardium is normal by two-dimensional imaging. There is no significant pericardial effusion. CONCLUSIONS Indication: assess for EF, vavular and wall motion abnormalities. Normal left ventricular size and function. Approximate ejection fraction is 65- 70%. Stage 1 diastolic function. Normal right ventricular size and function. RVSP ,32 mmHg with RAP 3. Mild HTN Moderately dilated LA and mildly dilated RA Mild aortic valve stenosis, Mild mitral and trace tricuspid regurgitation noted. Fabrice Anumandla (Electronically Signed) Final Date: 19 January 2025 17:59
[2025-01-18] MEDS: cefTRIAXone/D5w 1gm IV premix 1 GM/50 ML BAG IV (08:21)
[2025-01-18] MEDS: THIAMINE 100 MG TABLET PO (08:21)
[2025-01-18] MEDS: HEPARIN SOD INJ 5000 UNIT/ML VIAL SC ×2 (08:21→22:49)
[2025-01-18] MEDS: FAMOTIDINE 20 MG TABLET PO ×2 (08:21→22:43)
[2025-01-18] MEDS: DOCUSATE SOD 100 MG CAPSULE PO (08:21)
[2025-01-18] MEDS: DOXYCYCLINE INJ 100 MG in SODIUM CHLORIDE 0.9% (POP) 100 ML IV ×2 (08:21→22:43)
[2025-01-18] MEDS: METOPROLOL SUCCINATE XL 25 MG TABCR 50 MG PO (08:22)
[2025-01-18] MEDS: Magnesium Sulfate 2 GM Ivpb 2 GM/50 ML BAG IV (09:41)
--- NOTE | 2025-01-18 10:06 | XR_ITS ---
Examination: Lumbar spine, 5 views Technique: Lumbar spine AP, lateral, coned lateral lower lumbar spine, bilateral obliques 5 views Exam date and time: January 18, 2025, 10:34 a.m. INDICATIONS: Back pain 2 weeks, history L2 fracture, comparison July 11, 2020 FINDINGS: Severe osteopenia Gallstones Severe chronic osteoporotic compression L1, moderate chronic osteoporotic compression L2 Diffuse lumbar disc narrowing advanced L3-L4, L4-L5 Again noted mild aneurysmal dilatation calcified abdominal aorta IMPRESSION: Consider CT scan lumbar spine follow-up to best assess acuity of the more severely compressed L1 vertebral body
--- NOTE | 2025-01-18 10:07 | PC.SS ---
Jori Moreno is a 69-year-old male admitted for ANTHONY. SSmade contact with the patient in the attempt to complete initial. Role and reason for the contact was explained to the patient. Demographic information was verified with the patient. Patient was able to verify his home address, phone number and contact information for his son, Ramo Moreno. Patient identifies his Son, Ramo Moreno as his primary care person, [phone]. Patient reports he is able to complete all ADL's independently. Patient reports he utilizes a cane, and Rollator walker to assist with ambulation. PCP is Mik Mckeon. Choice of pharmacy is [facility]. At time of discharge patient will return home family will provide transportation Discharge plan: Home next of kin: SonMik
[2025-01-18 11:57] LABS: Cocci Serology, IgM Negative (Negative)
[2025-01-18] MEDS: LIDOCAINE 5% 1 PATCH TOP (11:59)
--- NOTE | 2025-01-18 13:32 | ESPR_ITS ---
Documentation for date of: 01/18/25 No overnight events. Patient examined bedside. Patient continues to be alert and orientated. Improved upper arm cellulities, continue IV antibiotics. Continue to monitor for signs of infection. Pending PT, old fracture noted on lumbar x-ray, repeat images continues to show fracture. No lower extremity weakness or urinary retention. 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 Per physician's office, patient has a past medical history of Myelodysplastic Syndrome. Patient is being treated with Vidaza (Azacitidine) weakly as well as Retacrit by Dr. West. Brace Ordered. Pending PT. Patient likely to be discharge over the next 24 hours. Senior Resident Attestation: I have discussed the case with supervising physician and internet database specialist physician involved in the care of patient. I personally saw and examined patient and discussed the assessment and plan with the entire medical team, including attending. I agree with assessment and plan as documented below. - The patient's plan was discussed with attending Dr. Abelardo Jha MD PGY2 Internal Medicine Subjective Subjective Interval history: NAEON, VSS except for BP 147/63 and mario alberto at 56 bpm. Patient was mario alberto majority overnight. Fluid balance: +700 from IV meds minus 150 urine output = +550. Labs notable for WBC 12.2, Hbg 9.1, BUN 48, Cr 3.3. At bedside, patient AOx4, appears to show marked improvement in condition compared to yesterday in ED. Says he has myelodysplastic syndrome follows up with Dr. Olivares. Dr. Rangel called back saying patient's baseline GFR 19, Cr 3.0. Dr. Rangel mentioned to have patient see him on 24 of January after discharged. Considering discharge tomorrow will continued improvement and reaching out to Dr. Olivares. Exam Vital Signs Temp Pulse Resp BP Pulse Ox O2 Del Method 96.9 F 56 L 16 147/63 H 96 Room Air 01/18/25 07:59 01/18/25 08:22 01/18/25 07:59 01/18/25 08:22 01/18/25 07:59 01/18/25 07:59 Narrative Exam General: No acute distress, well nourished Eye: PERRL, EOMI, normal conjunctiva, no scleral icterus HENT: Normocephalic, atraumatic, normal hearing, pink and moist mucous membranes, no oral lesions in mouth, throat shows no erythema Neck: Supple, non-tender, no JVD, no lymphadenopathy Lungs: Clear to auscultation bilaterally, non-labored respirations, symmetric chest rise, no use of accessory muscles Heart: Normal S1 and S2, no S3 or S4 appreciated. Normal rate and regular rhythm, no murmurs, rubs gallops, or edema. Peripheral pulses intact bilaterally, capillary refill brisk distally Abdomen: Soft, TTP LUQ, non-distended, normal bowel sounds. No guarding or rebound tenderness. Musculoskeletal: Normal range of motion and strength. LUE shows purple-jose guadalupe, reddish area approximately 10cm in diameter. Not tender to the touch. Skin: Skin is warm, dry, bilateral hyperpigmentation of upper limbs Neurologic: Alert, awake and oriented x3. CN II-XII grossly intact. No focal neuro deficits. No signs of meningeal irritation noted. Psychiatric: Cooperative, appropriate mood and affect Objective Labs 01/19/25 05:15 01/19/25 05:15 Labs: Laboratory Results - last 24 hr 01/17/25 01/17/25 01/17/25 12:55 13:37 15:32 WBC RBC Hgb Hct MCV MCH MCHC RDW Std Deviation Plt Count Neut % (Auto) Lymph % (Auto) [place] % (Auto) Eos % (Auto) Baso % (Auto) Neut # (Auto) Lymph # (Auto) [place] # (Auto) Eos # (Auto) Baso # (Auto) Immature Gran # (Auto) Absolute Nucleated RBC Immature Gran % Nucleated RBC % ESR 30 H PT INR D-Dimer 2690 H Puncture Site Right Radial ABG pH 7.44 ABG pCO2 34 ABG pO2 65 L ABG HCO3 23 ABG O2 Saturation 93 ABG Base Excess 0 FiO2 21 Sodium 139 Potassium 4.1 Chloride 102 Carbon Dioxide 23.8 Anion Gap 13 BUN 46 H Creatinine 3.2 H Estim Creat Clear Calc 14.6 L eGFR 18 L BUN/Creatinine Ratio 14 Glucose 109 H Calculated Osmolality 290 Calcium 9.1 Corrected Calcium 9.4 Phosphorus Magnesium 1.5 L Total Bilirubin 0.4 AST 18 ALT < 7 L Alkaline Phosphatase 50 Troponin I < 0.020 C-Reactive Prot, Quant 1.5 H B-Natriuretic Peptide 621 H* Total Protein 5.7 Albumin 3.6 Globulin 2.1 L Albumin/Globulin Ratio 1.7 Procalcitonin 1.16 H TSH Ur Collection Type Urine Color Urine Clarity Urine pH Ur Specific [place] Urine Protein Urine Glucose (UA) Urine Ketones Urine Blood Urine Nitrite Urine Bilirubin Urine Urobilinogen (Auto) Ur Leukocyte Esterase Urine RBC Urine WBC Ur Squamous Epith Cells Urine Bacteria Hyaline Casts Ur Random Creatinine Ur Random Sodium Ur Random Potassium Ur Random Chloride Coccidioides IgM Ab Monoscreen Negative Influenza A (Rapid) Negative Influenza B (Rapid) Negative 01/17/25 01/17/25 01/18/25 15:57 18:20 05:00 WBC 12.2 H RBC 3.75 L Hgb 9.1 L Hct 31.1 L MCV 83 MCH 24.3 L MCHC 29.3 L RDW Std Deviation 67.7 H Plt Count 204 Neut % (Auto) 92 H Lymph % (Auto) 3 L [place] % (Auto) 5 Eos % (Auto) 0 Baso % (Auto) 0 Neut # (Auto) 11.2 H Lymph # (Auto) 0.3 L [place] # (Auto) 0.6 Eos # (Auto) 0.0 Baso # (Auto) 0.1 Immature Gran # (Auto) 0.04 H Absolute Nucleated RBC 0.00 Immature Gran % 0 Nucleated RBC % 0 ESR PT 13.1 H INR 1.3 D-Dimer Puncture Site ABG pH ABG pCO2 ABG pO2 ABG HCO3 ABG O2 Saturation ABG Base Excess FiO2 Sodium 138 Potassium 3.8 Chloride 103 Carbon Dioxide 24.4 Anion Gap 11 BUN 48 H Creatinine 3.3 H Estim Creat Clear Calc 14.2 L eGFR 17 L BUN/Creatinine Ratio 15 Glucose 137 H Calculated Osmolality 290 Calcium 8.8 Corrected Calcium 9.5 Phosphorus 4.5 Magnesium 1.6 Total Bilirubin 0.3 AST 15 ALT < 7 L Alkaline Phosphatase 40 L Troponin I C-Reactive Prot, Quant B-Natriuretic Peptide Total Protein 5.3 L Albumin 3.1 L D Globulin 2.2 L Albumin/Globulin Ratio 1.4 Procalcitonin TSH 3.08 Ur Collection Type Voided Urine Color Lt-Yellow Urine Clarity Clear Urine pH 6.5 Ur Specific [place] 1.017 Urine Protein 2+ A Urine Glucose (UA) Negative Urine Ketones Negative Urine Blood Negative Urine Nitrite Negative Urine Bilirubin Negative Urine Urobilinogen (Auto) Negative Ur Leukocyte Esterase Negative Urine RBC 1 Urine WBC 0 Ur Squamous Epith Cells 1 Urine Bacteria None Hyaline Casts < 1 Ur Random Creatinine 74 Ur Random Sodium 63.2 Ur Random Potassium 61 Ur Random Chloride 66.8 Coccidioides IgM Ab Negative Monoscreen Influenza A (Rapid) Influenza B (Rapid) ABG Interpretation ABG results: 01/17/25 15:32 ABG pH 7.44 ABG pCO2 34 ABG pO2 65 L ABG HCO3 23 ABG O2 Saturation 93 ABG Base Excess 0 Quality Measures Quality Measures sepsis Current suspected stage: ruled out Possible source: unknown Blood cultures ordered: yes Antibiotic ordered: Yes Advance care planning discussed with:: patient Assessment & Plan Assessment Current Active Medications: Generic Name Dose Route Start Last Admin Trade Name Freq PRN Reason Stop Dose Admin Acetaminophen 650 mg 01/17/25 17:27 Acetaminophen 325 Mg Tablet PO 02/16/25 17:26 Q6H PRN Fever >100.4, mild pain 1-3 Hydrocodone Bitart/Acetaminophen 1 tab 01/17/25 19:20 Hydrocodone/Apap 5/325 Tablet PO 01/22/25 17:43 Q6HR PRN mod - severe pain (4-10) Docusate Sodium 100 mg 01/17/25 17:45 01/18/25 08:21 Docusate Sod 100 Mg Capsule PO 02/16/25 17:44 100 mg QDAY YELENA Administration Protocol Famotidine 20 mg 01/17/25 21:00 01/18/25 08:21 Famotidine 20 Mg Tablet PO 02/16/25 20:59 20 mg BID YELENA Administration Heparin Sodium (Porcine) 5,000 unit 01/17/25 21:00 01/18/25 08:21 Heparin Sod Inj 5000 Unit/Ml Vial SC 01/31/25 20:59 5,000 unit Q12HR YELENA Administration Ceftriaxone Sodium/Dextrose 1 gm in 50 mls @ 100 mls/hr 01/18/25 09:00 01/18/25 08:21 Rocephin/D5w 1gm Iv Premix IV 01/25/25 08:59 100 mls/hr QDAY YELENA Administration Doxycycline Hyclate 100 mg/ 100 mls @ 100 mls/hr 01/17/25 21:00 01/18/25 08:21 Sodium Chloride IV 01/24/25 20:59 100 mls/hr BID YELENA Administration Levothyroxine Sodium 75 mcg 01/18/25 06:00 01/18/25 05:52 Levothyroxine Sodium 25 Mcg Tablet PO 02/17/25 05:59 75 mcg ACBR YELENA Administration Lidocaine 1 patch 01/18/25 11:30 01/18/25 11:59 Lidocaine 5% 1 Patch TOP 02/17/25 11:29 1 patch UD YELENA Administration Protocol Lorazepam 1 mg 01/17/25 19:15 Lorazepam 0.5 Mg Tablet PO 01/22/25 19:14 X1 PRN AGITATION Metoprolol Succinate 50 mg 01/18/25 09:00 01/18/25 08:22 Metoprolol Succinate Xl 25 Mg Tabcr PO 02/17/25 08:59 50 mg QDAY YELENA Administration Ondansetron HCl 4 mg 01/17/25 17:33 Ondansetron Inj 2 Mg/Ml Inj 2 Ml IVP 02/16/25 17:32 Q6H PRN NAUSEA OR VOMITING Protocol Thiamine HCl 100 mg 01/17/25 19:30 01/18/25 08:21 Thiamine 100 Mg Tablet PO 02/16/25 19:29 100 mg QDAY YELENA Administration Plan 89 yo male PMHx: HTN, hypothyroidism, CKD, MDS and CHF? presents to ED with nausea, vomiting, and diarrhea. Patient admitted for ANTHONY. #Soft Tissue Infection #Cellulitis improving #SIRS Postitive resolved In ED, UE shows induration and swelling - US shows no signs of DVT - CTM - Patient says his LUE feels better. No TTP and has no reduced ROM. #ANTHONY on CKD In ED, labs showed WBC 13.0, BUN 46, Cr 3.2 Unsure of baseline Transmitter Chief: Dr. Rangel Inflammatory markers increased, CRP 1.5, Pro-Richard 1 - qAM CMP - started rocephin 1g daily, doxy 100 IV BID #A-fib current home med amio 200 PO daily - waiting on med rec, hold amio -Continue Metroplol 50 mg qday - TSH 3.08 #HTN - restarted meds metop succ XL 50mg daily #hypothyroidism - restarted levothyroxine 75mcg #MDS Oncologist: Dr. Olivares. -Vidaza (Azacitidine)-as outpatient - qAM CBC - reach out to oncologist #alcohol misuse disorder - thiamine 100 PO daily #CHF? Air Director Dr. Benjamin BNP 624 K > 4, Mg > 2 Strict I&Os 10/24 HR mario alberto (x7 throughout night) - restarted metop succ XL - fluid restriction 1500mL - CTM clinically - pending echo Checklist: Admit: Med Tele Diet: cardiac PUD PPX: famotidine 20 BID VTE PPX: hep 5K BID Code: FULL CODE Case was discussed with Attending Dr. Zhou, and Senior Resident Dr. Jose Vigil DO PGY-1 Attending Provider Attestation/Addendum I have discussed and was present for the essential components of the history, physical examination, diagnosis, and treatment plan with the resident. I agree with the patient's care as documented by the resident and amended herein by me. Kavon Zhou DO. Although this document has been carefully reviewed, there may still be some phonetic and other typographical errors. These errors are purely grammatical due to imperfections in the software program and should not be construed in any way to compromise the substance of the patient's medical care during this visit.
--- NOTE | 2025-01-18 14:21 | PC.SS ---
SS follow up note; CKD worsening, Patient will possibly be a new dialysis. Dr. Gloria following.
[2025-01-19] VITALS (15 sets, daily range): BP systolic 161–207; BP diastolic 72–98; PULSE 50–62; RESP 15–99; TEMP 36.1–36.7; O2SAT 96–99
[2025-01-19] MEDS: hydrALAZINE INJ 20 MG/ML VIAL 10 MG IVP ×2 (00:47→19:52)
[2025-01-19] MEDS: LEVOTHYROXINE SODIUM 25 MCG TABLET 75 MCG PO (05:38)
--- NOTE | 2025-01-19 06:00 | PC.NURSE ---
stage 3 pressure injury to lower back - Cleansed with wound cleanser, pat dry, applied no sting barrier prep to surrounding skin, covered with allevyn. Moisture associated dermatitis to perianal area- Cleansed with purple wipes. applied zinc paste. Scabs to scrotum- open to air.
[2025-01-19 06:01] LABS: Basophils # (Auto) 0.1 Thou/mm3 (0.0-0.2); Basophils % (Auto) 1 % (0-2.5); Eosinophils # (Auto) 0.3 Thou/mm3 (0.0-0.5); Eosinophils % (Auto) 3 % (0-10); Hematocrit 31.6 % (41.0-53.0); Hemoglobin 9.0 g/dL (13.5-16.0); Immature Granulocytes Auto 0.04 Thou/mm3 (0.00-0.00); Lymphocytes # (Auto) 0.8 Thou/mm3 (1.0-4.8); Lymphocytes % (Auto) 9 % (10-50); Mean Corpuscular HGB Conc 28.5 g/dl (31.0-37.0); Mean Corpuscular Hemoglobin 24.1 pg (25.0-35.0); Mean Corpuscular Volume 85 fL (80-100); Monocytes # (Auto) 0.7 Thou/mm3 (0.0-0.8); Monocytes % (Auto) 7 % (0-12); Neutrophils # (Auto) 7.3 Thou/mm3 (1.8-7.7); Neutrophils % (Auto) 80 % (37-80); Nucleated Red Blood Cell # 0.00 Thou/mm3 (0.00-0.00); Nucleated Red Blood Cell % 0 /100 WBC (0); Platelet Count 180 Thou/mm3 (140-440); RDW Standard Deviation 67.8 fL (35.1-43.9); Red Blood Count 3.73 Miln/mm3 (4.50-5.90); White Blood Count 9.2 Thou/mm3 (3.8-10.6)
[2025-01-19 06:40] LABS: Alanine Aminotransferase < 7 U/L (10-49); Albumin, Serum 3.1 gm/dL (3.4-4.8); Albumin/Globulin Ratio 1.6 (1.2-2.2); Alkaline Phosphatase 41 U/L (46-116); Anion Gap 10 (7-16); Aspartate Amino Transferase 18 U/L (0-34); BUN/Creatinine Ratio 16 Ratio (12-20); Bilirubin,Total 0.3 mg/dL (0.3-1.2); Blood Urea Nitrogen 52 mg/dL (9-23); Calcium 8.6 mg/dL (8.3-10.6); Calcium (Corrected) 9.3 mg/dL (8.5-10.1); Carbon Dioxide 23.9 mMol/L (20.0-31.0); Chloride 104 mMol/L (98-107); Creatinine (Component) 3.2 mg/dL (0.6-1.3); Estimated Creatinine Clearance 14.6 mL/min (>60); Globulin 1.9 gm/dL (2.3-3.5); Glucose 86 mg/dL (74-106); Magnesium 2.0 mg/dL (1.6-2.6); Osmolality,Calculated 288 (275-295); Phosphorous 3.9 mg/dL (2.4-5.1); Potassium 4.1 mMol/L (3.4-5.1); Sodium 138 mMol/L (136-145); Total Protein 5.0 gm/dL (5.7-8.2); eGFR 18 See Note
[2025-01-19] MEDS: HEPARIN SOD INJ 5000 UNIT/ML VIAL SC ×2 (08:47→20:50)
[2025-01-19] MEDS: THIAMINE 100 MG TABLET PO (08:48)
[2025-01-19] MEDS: METOPROLOL SUCCINATE XL 25 MG TABCR 50 MG PO (08:48)
[2025-01-19] MEDS: FAMOTIDINE 20 MG TABLET PO ×2 (08:48→20:43)
[2025-01-19] MEDS: DOXYCYCLINE INJ 100 MG in SODIUM CHLORIDE 0.9% (POP) 100 ML IV ×2 (08:48→20:47)
[2025-01-19] MEDS: cefTRIAXone/D5w 1gm IV premix 1 GM/50 ML BAG IV (08:48)
[2025-01-19] MEDS: DOCUSATE SOD 100 MG CAPSULE PO (08:48)
--- NOTE | 2025-01-19 11:26 | XR_ITS ---
Examination: CT lumbar spine, without contrast. 2-D sagittal reconstructions. 2-D coronal reconstructions. 3-D reconstructions. Date and time of exam: January 19, 2025, 1544 hours INDICATIONS: History back pain 2 weeks, history L2 fracture with more severely compressed L1 vertebral body on plain film lumbar spine January 18, 2025 CTDI: vol (mGy): 19.1 DLP: (mGycm): 591 Technique: Multiple 1.25 mm axial sections of the lumbar spine without intravenous contrast have been obtained. 2-D sagittal and coronal reconstructions have been obtained. 3-D reconstructions have been obtained. Low dose protocols were performed. One or more of the following dose reduction techniques were used; automated exposure control, adjustment of the mA and/or KV according to patient size, use of iterative reconstruction technique. Findings: Severe osteopenia Subacute severe compression fracture L1 vertebral body, marked retropulsion, 10 mm, posterior vertebral margin of this vertebral body into the spinal canal Chronic osteoporotic moderate compression L2 Significant disc narrowing L3-L4, L4-L5 Grade 1 anterolisthesis L5 on S1 L5-S1 3 mm central lumbar disc bulge with mild bilateral L5 ganglionic compression secondary to the anterolisthesis L4-L5 moderate overall spinal stenosis, axial image 81, circumferential narrowing of the thecal sac largely related to facet arthropathy and thickening of ligamentum flavum More cephalad levels no disc protrusion IMPRESSION: Subacute/acute severe compression fracture of L1 vertebral body, consider MRI lumbar spine without contrast follow-up to assess compression of the conus medullaris secondary to the retropulsion of this compressed vertebral body L5-S1 3 mm central lumbar disc bulge and mild bilateral L5 ganglionic compression L4-L5 moderate overall spinal stenosis
--- NOTE | 2025-01-19 13:06 | PD.RESPRO ---
Documentation for date of: 01/19/25 No overnight events. Patient was noted to have 2/2 GNR in blood culture, pending final culture results for appropriate antibiotic transition to PO. Patinet continues to be alert and orientated. Pending physical therapy and back brace. - The patient's plan was discussed with attending Dr. Abelardo Jha MD PGY2 Internal Medicine Subjective Subjective Interval history: NAEON, Vitals notable for hypertension 183/73 and bradycardia HR 50. Labs consistent with CKD BUN 52, Cr 3.2. BCx x2 returned showing GNR growth on micro. At bedside, spoke to patient about findings. Patient says he feels better and wants to go home. I recommnded patient stay to confirm the bacteria in the cultures. I expalined the risks if patient were to leave at this time. Patient understood. Left arm appears better today, less erythmatous and no pain to palpation. Only other complaint is back pain however no other concerning findings in regards to conus medullaris to include saddle anesthesia, lower extremity weakness, bowel or bladder incontinence, etc. Exam Vital Signs Temp Pulse Resp BP Pulse Ox O2 Del Method 97.2 F 50 L 18 183/73 H 98 Room Air 01/19/25 11:57 01/19/25 11:57 01/19/25 11:57 01/19/25 11:57 01/19/25 11:57 01/19/25 11:57 Narrative Exam General: No acute distress, well nourished Eye: PERRL, EOMI, normal conjunctiva, no scleral icterus HENT: Normocephalic, atraumatic, normal hearing, pink and moist mucous membranes, no oral lesions in mouth, throat shows no erythema Neck: Supple, non-tender, no JVD, no lymphadenopathy Lungs: Clear to auscultation anteriorly and posteriorly RLL shows expiratory wheezing, non-labored respirations, symmetric chest rise, no use of accessory muscles Heart: Normal S1 and S2, no S3 or S4 appreciated. Normal rate and regular rhythm, no murmurs, rubs gallops, or edema. Peripheral pulses intact bilaterally, capillary refill brisk distally Abdomen: Soft, non-tender, non-distended, normal bowel sounds. No guarding or rebound tenderness. Musculoskeletal: Normal range of motion and strength. Skin: Skin is warm, dry, no rashes or lesions. Neurologic: Alert, awake and oriented x3. CN II-XII grossly intact. No focal neuro deficits. No signs of meningeal irritation noted. Psychiatric: Cooperative, appropriate mood and affect Objective Labs 01/20/25 05:12 01/20/25 05:12 Labs: Laboratory Results - last 24 hr 01/19/25 05:15 WBC 9.2 RBC 3.73 L Hgb 9.0 L Hct 31.6 L MCV 85 MCH 24.1 L MCHC 28.5 L RDW Std Deviation 67.8 H Plt Count 180 Neut % (Auto) 80 Lymph % (Auto) 9 L [place] % (Auto) 7 Eos % (Auto) 3 Baso % (Auto) 1 Neut # (Auto) 7.3 Lymph # (Auto) 0.8 L [place] # (Auto) 0.7 Eos # (Auto) 0.3 Baso # (Auto) 0.1 Immature Gran # (Auto) 0.04 H Absolute Nucleated RBC 0.00 Immature Gran % 0 Nucleated RBC % 0 Sodium 138 Potassium 4.1 Chloride 104 Carbon Dioxide 23.9 Anion Gap 10 BUN 52 H Creatinine 3.2 H Estim Creat Clear Calc 14.6 L eGFR 18 L BUN/Creatinine Ratio 16 Glucose 86 D Calculated Osmolality 288 Calcium 8.6 Corrected Calcium 9.3 Phosphorus 3.9 Magnesium 2.0 Total Bilirubin 0.3 AST 18 ALT < 7 L Alkaline Phosphatase 41 L Total Protein 5.0 L Albumin 3.1 L Globulin 1.9 L Albumin/Globulin Ratio 1.6 ABG Interpretation ABG results: 01/17/25 15:32 ABG pH 7.44 ABG pCO2 34 ABG pO2 65 L ABG HCO3 23 ABG O2 Saturation 93 ABG Base Excess 0 Quality Measures Quality Measures sepsis Current suspected stage: ruled out Possible source: unknown Blood cultures ordered: yes Antibiotic ordered: Yes Advance care planning discussed with:: patient Assessment & Plan Assessment Current Active Medications: Generic Name Dose Route Start Last Admin Trade Name Freq PRN Reason Stop Dose Admin Acetaminophen 650 mg 01/17/25 17:27 Acetaminophen 325 Mg Tablet PO 02/16/25 17:26 Q6H PRN Fever >100.4, mild pain 1-3 Hydrocodone Bitart/Acetaminophen 1 tab 01/17/25 19:20 Hydrocodone/Apap 5/325 Tablet PO 01/22/25 17:43 Q6HR PRN mod - severe pain (4-10) Amlodipine Besylate 5 mg 01/19/25 21:00 Amlodipine Besylate 5 Mg Tablet PO 02/18/25 20:59 HS YELENA Docusate Sodium 100 mg 01/17/25 17:45 01/19/25 08:48 Docusate Sod 100 Mg Capsule PO 02/16/25 17:44 100 mg QDAY YELENA Administration Protocol Famotidine 20 mg 01/17/25 21:00 01/19/25 08:48 Famotidine 20 Mg Tablet PO 02/16/25 20:59 20 mg BID YELENA Administration Heparin Sodium (Porcine) 5,000 unit 01/17/25 21:00 01/19/25 08:47 Heparin Sod Inj 5000 Unit/Ml Vial SC 01/31/25 20:59 5,000 unit Q12HR YELENA Administration Ceftriaxone Sodium/Dextrose 1 gm in 50 mls @ 100 mls/hr 01/18/25 09:00 01/19/25 08:48 Rocephin/D5w 1gm Iv Premix IV 01/25/25 08:59 100 mls/hr QDAY YELENA Administration Doxycycline Hyclate 100 mg/ 100 mls @ 100 mls/hr 01/17/25 21:00 01/19/25 08:48 Sodium Chloride IV 01/24/25 20:59 100 mls/hr BID YELENA Administration Levothyroxine Sodium 75 mcg 01/18/25 06:00 01/19/25 05:38 Levothyroxine Sodium 25 Mcg Tablet PO 02/17/25 05:59 75 mcg ACBR YELENA Administration Lidocaine 1 patch 01/18/25 11:30 01/18/25 11:59 Lidocaine 5% 1 Patch TOP 02/17/25 11:29 1 patch UD YELENA Administration Protocol Lisinopril 40 mg 01/19/25 09:00 01/19/25 09:13 Lisinopril 20 Mg Tablet PO 02/18/25 08:59 40 mg QDAY YELENA Administration Lorazepam 1 mg 01/17/25 19:15 Lorazepam 0.5 Mg Tablet PO 01/22/25 19:14 X1 PRN AGITATION Metoprolol Succinate 50 mg 01/18/25 09:00 01/19/25 08:48 Metoprolol Succinate Xl 25 Mg Tabcr PO 02/17/25 08:59 50 mg QDAY YELENA Administration Ondansetron HCl 4 mg 01/17/25 17:33 Ondansetron Inj 2 Mg/Ml Inj 2 Ml IVP 02/16/25 17:32 Q6H PRN NAUSEA OR VOMITING Protocol Thiamine HCl 100 mg 01/17/25 19:30 01/19/25 08:48 Thiamine 100 Mg Tablet PO 02/16/25 19:29 100 mg QDAY YELENA Administration Plan 89 yo male PMHx: HTN, hypothyroidism, CKD, MDS and CHF? presents to ED with nausea, vomiting, and diarrhea. Patient admitted for ANTHONY. #Bacteremia GNR 2/2 #Soft Tissue Infection #Cellulitis improving #SIRS Postitive resolved In ED, UE shows induration and swelling BCx2 growing GNR 2/2 - US shows no signs of DVT - CTM - Patient says his LUE feels better. No TTP and has no reduced ROM. - waiting on speciation #ANTHONY on CKD In ED, labs showed WBC 13.0, BUN 46, Cr 3.2 Unsure of baseline Clinical Registered Nurse: Dr. Rangel Inflammatory markers increased, CRP 1.5, Pro-Richard 1 - qAM CMP - started rocephin 1g daily, doxy 100 IV BID # L1 vertebral body compression fracture, subacute/acute - Possible transfer for neurosurgery evaluation, pain control. Patient does have brace in place. #History A-fib current home med amio 200 PO daily - waiting on med rec, hold amio -Continue Metroplol 50 mg qday - TSH 3.08 #History of HTN - restarted meds metop succ XL 50mg daily #History of hypothyroidism - restarted levothyroxine 75mcg #History of MDS Oncologist: Dr. Olivares. -Jossie (Azacitidine)-as outpatient - qAM CBC - reach out to oncologist #History of alcohol misuse disorder - thiamine 100 PO daily #History of CHF? Lead Generation Marketing Manager Dr. Benjamin BNP 624 K > 4, Mg > 2 Strict I&Os 10/24 HR mario alberto (x7 throughout night) - restarted metop succ XL - fluid restriction 1500mL - CTM clinically - pending echo Checklist: Admit: Med Tele Diet: cardiac PUD PPX: famotidine 20 BID VTE PPX: hep 5K BID Code: FULL CODE Case was discussed with Attending Dr. Zhou, and Senior Resident Dr. Yudelka Vigil DO PGY-1 Attending Provider Attestation/Addendum I have discussed and was present for the essential components of the history, physical examination, diagnosis, and treatment plan with the resident. I agree with the patient's care as documented by the resident and amended herein by me. Kavon Zhou DO. Although this document has been carefully reviewed, there may still be some phonetic and other typographical errors. These errors are purely grammatical due to imperfections in the software program and should not be construed in any way to compromise the substance of the patient's medical care during this visit.
[2025-01-19] MEDS: LIDOCAINE 5% 1 PATCH TOP (13:13)
[2025-01-19 13:48] LABS: Cocci Serology, IgG Negative (Negative)
--- NOTE | 2025-01-19 16:55 | PC.PT ---
PT eval only. Patient is I with transfers and ambulation without AD.
[2025-01-20] VITALS (15 sets, daily range): BP systolic 130–185; BP diastolic 60–87; PULSE 52–65; RESP 16–95; TEMP 36.2–37.3; O2SAT 95–97
[2025-01-20] MEDS: hydrALAZINE INJ 20 MG/ML VIAL 10 MG IVP (04:08)
[2025-01-20] MEDS: LEVOTHYROXINE SODIUM 25 MCG TABLET 75 MCG PO (05:02)
[2025-01-20 06:29] LABS: Basophils # (Auto) 0.0 Thou/mm3 (0.0-0.2); Basophils % (Auto) 1 % (0-2.5); Eosinophils # (Auto) 0.2 Thou/mm3 (0.0-0.5); Eosinophils % (Auto) 4 % (0-10); Hematocrit 32.2 % (41.0-53.0); Hemoglobin 9.4 g/dL (13.5-16.0); Immature Granulocytes Auto 0.02 Thou/mm3 (0.00-0.00); Lymphocytes # (Auto) 0.7 Thou/mm3 (1.0-4.8); Lymphocytes % (Auto) 11 % (10-50); Mean Corpuscular HGB Conc 29.2 g/dl (31.0-37.0); Mean Corpuscular Hemoglobin 24.5 pg (25.0-35.0); Mean Corpuscular Volume 84 fL (80-100); Monocytes # (Auto) 0.6 Thou/mm3 (0.0-0.8); Monocytes % (Auto) 10 % (0-12); Neutrophils # (Auto) 4.8 Thou/mm3 (1.8-7.7); Neutrophils % (Auto) 75 % (37-80); Nucleated Red Blood Cell # 0.00 Thou/mm3 (0.00-0.00); Nucleated Red Blood Cell % 0 /100 WBC (0); Platelet Count 210 Thou/mm3 (140-440); RDW Standard Deviation 65.2 fL (35.1-43.9); Red Blood Count 3.84 Miln/mm3 (4.50-5.90); White Blood Count 6.4 Thou/mm3 (3.8-10.6)
[2025-01-20 07:04] LABS: Alanine Aminotransferase < 7 U/L (10-49); Albumin, Serum 3.2 gm/dL (3.4-4.8); Albumin/Globulin Ratio 1.6 (1.2-2.2); Alkaline Phosphatase 44 U/L (46-116); Anion Gap 10 (7-16); Aspartate Amino Transferase 16 U/L (0-34); BUN/Creatinine Ratio 17 Ratio (12-20); Bilirubin,Total 0.3 mg/dL (0.3-1.2); Blood Urea Nitrogen 50 mg/dL (9-23); Calcium 8.7 mg/dL (8.3-10.6); Calcium (Corrected) 9.3 mg/dL (8.5-10.1); Carbon Dioxide 22.0 mMol/L (20.0-31.0); Chloride 107 mMol/L (98-107); Creatinine (Component) 2.9 mg/dL (0.6-1.3); Estimated Creatinine Clearance 16.1 mL/min (>60); Globulin 2.0 gm/dL (2.3-3.5); Glucose 87 mg/dL (74-106); Magnesium 1.9 mg/dL (1.6-2.6); Osmolality,Calculated 289 (275-295); Phosphorous 3.3 mg/dL (2.4-5.1); Potassium 4.1 mMol/L (3.4-5.1); Sodium 139 mMol/L (136-145); Total Protein 5.2 gm/dL (5.7-8.2); eGFR 20 See Note
[2025-01-20] MEDS: NIFEdipine XL 30 MG TABCR 60 MG PO (08:38)
[2025-01-20] MEDS: DOXYCYCLINE INJ 100 MG in SODIUM CHLORIDE 0.9% (POP) 100 ML IV ×2 (08:40→21:36)
[2025-01-20] MEDS: THIAMINE 100 MG TABLET PO (08:40)
[2025-01-20] MEDS: FAMOTIDINE 20 MG TABLET PO ×2 (08:40→21:35)
[2025-01-20] MEDS: DOCUSATE SOD 100 MG CAPSULE PO (08:40)
[2025-01-20] MEDS: SODIUM BICARBONATE 650 MG TABLET PO ×2 (08:40→21:36)
[2025-01-20] MEDS: cefTRIAXone/D5w 1gm IV premix 1 GM/50 ML BAG IV (08:40)
[2025-01-20 09:29] LABS: Glucose Estimated Average 94 mg/dL (80-131); Hemoglobin A1C 4.9 % Hgb (4.8-6.0)
--- NOTE | 2025-01-20 10:01 | ESPR_ITS ---
<Statement entered by Barber Garcia MD - 01/20/25 12:53> I saw and examined patient personally and supervised PGY 1 resident, Dr. Vigil with formulating a management plan. I agree with the documentation with the exceptions as listed below. Patient is a 89-year-old male past medical history significant for primary hypertension, hypothyroidism, CKD follows with Dr. West, myelodysplastic syndrome follows with Dr. Olivares,? CHF, paroxysmal atrial fibrillation amiodarone who presented today with a chief complaint of chills and left arm pain. Problem list: 1. GNR bacteremia secondary to cellulitis?improving 2. Subacute/acute L1 vertebral body fracture 3. Myelodysplastic syndrome 4. Paroxysmal atrial fibrillation 5. CKD 6. Hypothyroidism 7. CAD s/p CABG 8. Chronic alcohol use 9. Primary hypertension Patient is on day 4 ceftriaxone 1 g IV daily and doxycycline 100 mg p.o. twice daily for GNR bacteremia secondary to left arm cellulitis. TTE was negative for any vegetations. Currently pending speciation of blood cultures. Patient's blood pressure this morning was elevated with systolics in the 180s. His home medication metoprolol was held due to bradycardia. Today patient reported to us that he takes hydralazine p.o. as a home medication, however this was not seen on his med rec. We resumed hydralazine 25 mg p.o. 3 times daily today for tighter blood pressure control. On this admission patient complained of lower back pain and also endorsed a history of vertebral body fracture since 2020. Repeat CT lumbar spine noncontrast was ordered which did show subacute/acute L1 vertebral body fracture with concern for possible compression of spinal cord. At this point in time patient's denies any bowel/bladder incontinence and sensation is intact in his lower limbs. However, we do not have neurosurgery or spinal orthopedics available at our center for evaluation. Therefore we will initiate transfer to a tertiary center for neurosurgery evaluation of his acute/subacute L1 vertebral body fracture. Plan of care discussed with Attending Dr. Abelardo Garcia MD PGY 2 Disclaimer: This note was dictated by speech recognition. Minor errors in soc analyst may be present due to voice recognition software. Documentation for date of: 01/20/25 Subjective Subjective Interval history: No overnight events. Patient was examined at bedside; they appear A&Ox4 and in NAD. Vitals/labs today significant for BP 185/73, Hgb 9.0->9.4, BUN 52->50, creatinine 3.2->2.9. Physical exam showed no signs of conus medullaris including saddle anesthesia, bowel incontinence, or LE weakness or paresthesia and was overall benign and unremarkable. The patient is currently receiving ceftriaxone 1 g IV once daily and doxycycline 100 mg orally twice daily, now on day four of treatment for gram-negative tegan bacteremia stemming from cellulitis of the left arm. A transthoracic echocardiogram (TTE) showed no evidence of vegetations. Blood cultures have been drawn and are awaiting speciation. This morning, the patient exhibited elevated systolic blood pressure readings in the 180s. Metoprolol, which he takes at home, was withheld due to bradycardia. He informed the team today that hydralazine is also part of his home regimen, though it was not listed in his medication reconciliation. As a result, hydralazine 25 mg orally three times daily was restarted to help manage his hypertension more effectively. He was also given PO nifedipine 60 mg x 1. During this hospitalization, the patient reported lower back pain and disclosed a prior vertebral body fracture dating back to 2020. A noncontrast CT scan of the lumbar spine was repeated and revealed a subacute to acute fracture at the L1 vertebral body, raising concern for potential spinal cord compression. At present, he denies any loss of bowel or bladder control, and sensory function in his lower extremities remains intact. Given the absence of neurosurgical and spinal orthopedic services at our facility, arrangements are being made to transfer him to a tertiary care center for further evaluation and management of the L1 fracture. Exam Vital Signs Temp Pulse Resp BP Pulse Ox O2 Del Method 97.5 F 63 18 180/60 H 97 Room Air 01/20/25 07:41 01/20/25 09:23 01/20/25 07:41 01/20/25 09:23 01/20/25 07:41 01/20/25 07:41 Narrative Exam General: No acute distress, well nourished Eye: PERRL, EOMI, normal conjunctiva, no scleral icterus HENT: Normocephalic, atraumatic, normal hearing, pink and moist mucous membranes, no oral lesions in mouth, throat shows no erythema Neck: Supple, non-tender, no JVD, no lymphadenopathy Lungs: Clear to auscultation anteriorly and posteriorly RLL shows expiratory wheezing, non-labored respirations, symmetric chest rise, no use of accessory muscles Heart: Normal S1 and S2, no S3 or S4 appreciated. Normal rate and regular rhythm, no murmurs, rubs gallops, or edema. Peripheral pulses intact bilaterally, capillary refill brisk distally Abdomen: Soft, non-tender, non-distended, normal bowel sounds. No guarding or rebound tenderness. Musculoskeletal: Normal range of motion and strength. Skin: Skin is warm, dry, no rashes or lesions. Neurologic: Alert, awake and oriented x3. CN II-XII grossly intact. No focal neuro deficits. No signs of meningeal irritation noted. NO Signs of conus medullaris including saddle anesthesia, bowel incontinence, or LE weakness or paresthesia. Psychiatric: Cooperative, appropriate mood and affect Objective Labs 01/20/25 05:12 01/20/25 05:12 Labs: Laboratory Results - last 24 hr 01/17/25 01/20/25 18:20 05:12 WBC 6.4 RBC 3.84 L Hgb 9.4 L Hct 32.2 L MCV 84 MCH 24.5 L MCHC 29.2 L RDW Std Deviation 65.2 H Plt Count 210 D Neut % (Auto) 75 Lymph % (Auto) 11 Wirt % (Auto) 10 Eos % (Auto) 4 Baso % (Auto) 1 Neut # (Auto) 4.8 Lymph # (Auto) 0.7 L Wirt # (Auto) 0.6 Eos # (Auto) 0.2 Baso # (Auto) 0.0 Immature Gran # (Auto) 0.02 H Absolute Nucleated RBC 0.00 Immature Gran % 0 Nucleated RBC % 0 Sodium 139 Potassium 4.1 Chloride 107 Carbon Dioxide 22.0 Anion Gap 10 BUN 50 H Creatinine 2.9 H Estim Creat Clear Calc 16.1 L eGFR 20 L BUN/Creatinine Ratio [address] Glu mg/dL 94 Hemoglobin A1c 4.9 Calculated Osmolality 289 Calcium 8.7 Corrected Calcium 9.3 Phosphorus 3.3 Magnesium 1.9 Total Bilirubin 0.3 AST 16 ALT < 7 L Alkaline Phosphatase 44 L Total Protein 5.2 L Albumin 3.2 L Globulin 2.0 L Albumin/Globulin Ratio 1.6 Coccidioides IgG Ab Negative ABG Interpretation ABG results: 01/17/25 15:32 ABG pH 7.44 ABG pCO2 34 ABG pO2 65 L ABG HCO3 23 ABG O2 Saturation 93 ABG Base Excess 0 Quality Measures Quality Measures sepsis Current suspected stage: ruled out Possible source: unknown Blood cultures ordered: yes Antibiotic ordered: Yes Advance care planning discussed with:: patient Assessment & Plan Assessment Current Active Medications: Generic Name Dose Route Start Last Admin Trade Name Freq PRN Reason Stop Dose Admin Acetaminophen 650 mg 01/17/25 17:27 Acetaminophen 325 Mg Tablet PO 02/16/25 17:26 Q6H PRN Fever >100.4, mild pain 1-3 Hydrocodone Bitart/Acetaminophen 1 tab 01/17/25 19:20 Hydrocodone/Apap 5/325 Tablet PO 01/22/25 17:43 Q6HR PRN mod - severe pain (4-10) Docusate Sodium 100 mg 01/17/25 17:45 01/20/25 08:40 Docusate Sod 100 Mg Capsule PO 02/16/25 17:44 100 mg QDAY YELENA Administration Protocol Famotidine 20 mg 01/17/25 21:00 01/20/25 08:40 Famotidine 20 Mg Tablet PO 02/16/25 20:59 20 mg BID YELENA Administration Heparin Sodium (Porcine) 5,000 unit 01/20/25 14:00 Heparin Sod Inj 5000 Unit/Ml Vial SC 02/03/25 13:59 Q8HR YELENA Hydralazine HCl 10 mg 01/19/25 13:08 01/20/25 04:08 Hydralazine Inj 20 Mg/Ml Vial IVP 02/18/25 13:07 10 mg Q6HR PRN Administration Hypertension Hydralazine HCl 25 mg 01/20/25 09:30 01/20/25 09:23 Hydralazine Hcl 25 Mg Tablet PO 02/19/25 09:29 25 mg TID YELENA Administration Ceftriaxone Sodium/Dextrose 1 gm in 50 mls @ 100 mls/hr 01/18/25 09:00 01/20/25 08:40 Rocephin/D5w 1gm Iv Premix IV 01/25/25 08:59 100 mls/hr QDAY YELENA Administration Doxycycline Hyclate 100 mg/ 100 mls @ 100 mls/hr 01/17/25 21:00 01/20/25 08:40 Sodium Chloride IV 01/24/25 20:59 100 mls/hr BID YELENA Administration Levothyroxine Sodium 75 mcg 01/18/25 06:00 01/20/25 05:02 Levothyroxine Sodium 25 Mcg Tablet PO 02/17/25 05:59 75 mcg ACBR YELENA Administration Lidocaine 1 patch 01/18/25 11:30 01/19/25 13:13 Lidocaine 5% 1 Patch TOP 02/17/25 11:29 1 patch UD YELENA Administration Protocol Lisinopril 40 mg 01/19/25 09:00 01/20/25 08:39 Lisinopril 20 Mg Tablet PO 02/18/25 08:59 40 mg QDAY YELENA Administration Lorazepam 1 mg 01/17/25 19:15 Lorazepam 0.5 Mg Tablet PO 01/22/25 19:14 X1 PRN AGITATION Metoprolol Succinate 50 mg 01/21/25 09:00 Metoprolol Succinate Xl 25 Mg Tabcr PO 02/20/25 08:59 QDAY YELENA Ondansetron HCl 4 mg 01/17/25 17:33 Ondansetron Inj 2 Mg/Ml Inj 2 Ml IVP 02/16/25 17:32 Q6H PRN NAUSEA OR VOMITING Protocol Sodium Bicarbonate 650 mg 01/20/25 09:00 01/20/25 08:40 Sodium Bicarbonate 650 Mg Tablet PO 02/19/25 08:59 650 mg BID YELENA Administration Thiamine HCl 100 mg 01/17/25 19:30 01/20/25 08:40 Thiamine 100 Mg Tablet PO 02/16/25 19:29 100 mg QDAY YELENA Administration Plan Patient is a 89-year-old male past medical history significant for primary hypertension, hypothyroidism, CKD follows with Dr. West, myelodysplastic syndrome follows with Dr. Olivares,? CHF, paroxysmal atrial fibrillation on amiodarone who presented today with a chief complaint of chills and left arm pain. #GNR bacteremia 2/2 cellulitis, improving Patient initially presented with erythema and pain of the left arm and 01/17 BCxs showed 2/2 growth of GNR Cellulitis presentation has improved dramatically and is considered resolved Dx: -TTE negative for vegetations -BCx speciation pending (predicted to result on the morning of 01/21) Rx: -IV ceftriaxone 1 g qD [01/17--] -PO doxycycline 100 mg BID [01/17--] #Primary hypertension Patient's BP on 01/17 was elevated with systolic in the 180s On home metoprolol and patient also reports hydralazine but this was not seen on medication reconciliation Rx: -PO nifedepine 60 mg x 1 -PO lisinopril 40 mg qD -PO hydralazine 25 mg TID -PO metoprolol succinate 50 mg qD -PO amlodipine 5 mg qD -PO furosemide 20 mg qAM -IV hydralazine 10 mg q6HR prn #Subacute/acute L1 vertebral body fracture Dx: -01/[address] showed subacute/acute severe compression fracture of L1 vertebral body (MRI lumbar spine recommended to assess compression of the conus medullaris 2/2 retropulsion of this compressed vertebral body) -01/20 physical exam negative for findings suggestive of conus medullaris (lack of bowel incontinence and loss of sensation in lower limbs) Rx: -Initiate transfer to a tertiary center for neurosurgery evaluation -PT evaluation complete, awaiting recommendations -Back brace has been obtained for patient #Myelodysplastic syndrome #Normocytic anemia 01/17 admission Hgb 10.6 (MCV 81, RDW 65.3) Follows oncologist (Dr. Olivares) in the outpatient setting Rx: -CTM CBC -Transfuse if Hgb<7 -Outpatient oncology follow-up #Paroxysmal atrial fibrillation Home medication: PO amiodarone 200 mg qD Currently not in atrial fibrillation (stable) Rx: -PO metoprolol succinate 50 mg qD #ANTHONY on CKD 01/17 admission creatinine 3.2 (baseline: unknown) 01/20 creatinine down-trended to 2.9 Rx: -PO sodium bicarbonate 650 mg BID #Hypothyroidism Dx: -01/18 TSH 3.08 (WNL) Rx: -PO levothyroxine 75 mcg ACBR #CAD s/p CABG Stable Rx: -Continue to monitor #Chronic alcohol use Rx: -PO thiamine 100 mg qD Hospital Management: Disposition: Awaiting BCx speciation before patient can be discharged Diet: Cardiac GI Prophylaxis: PO Pepcid 20 mg BID Bowel Prophylaxis: PO Colace 100 mg qD DVT Prophylaxis: SC Heparin 5K q8HR CODE STATUS: Full Code I have examined the patient and conferred with my attending, Dr. Zhou, and my senior resident, Dr. Garcia, regarding them. Robert George, DO PGY-1 Internal Medicine Attending Provider Attestation/Addendum I have discussed and was present for the essential components of the history, physical examination, diagnosis, and treatment plan with the resident. I agree with the patient's care as documented by the resident and amended herein by me. Kavon Zhou DO. Although this document has been carefully reviewed, there may still be some phonetic and other typographical errors. These errors are purely grammatical due to imperfections in the software program and should not be construed in any way to compromise the substance of the patient's medical care during this visit. Patient seen and evaluated this AM. Events overnight, vital signs stable, patient afebrile overnight. Labs largely unremarkable, creatinine at about the patient's baseline at 2.9 per nephrology. Blood cultures demonstrating GNRs aerobic bottle of both sets, patient pending. The patient's cellulitis on his left forearm is significantly improved, will continue ceftriaxone and Doxy for the patient's upper extremity cellulitis, will de-escalate once blood culture speciation results. Towards the patient's spinal fracture goes, to recap, on approximately November 14 the patient endorsed a mechanical ground-level fall, apparently he was in his kitchen dropped something on the floor, when he went to pick it up and stood back up he lost his balance and fell backwards. He was able to get back up at that time and walk around however but he said he had severe back pain for approximately 1 week after that incident limiting his mobility. He has been able to walk since that time his only complaint is low back pain. He presently denies any signs of saddle anesthesia, lower extremity weakness, bowel or bladder incontinence or dysfunction to include retention. He further stated he did not have any of these symptoms since his fall, only pain. Due to worsening back pain on this admission and considering his history, we did obtain a lumbar spine x-ray on 01/18 which demonstrated a severely compressed L1 vertebral body, hence per radiology recommendations we obtained a lumbar CT also on 01/18 which demonstrated a subacute/acute severe compression fracture of L1 and was recommending MRI contrast to assess compression of the conus medullaris secondary to the retroavulsion of the compressed vertebral body. Other finding was an L5-S1 3 mm central lumbar disc bulge and mild bilateral L5 ganglionic compression along with an L4-L5 moderate overall spinal stenosis. Patient's pain is controlled with lidocaine patch however due to the severity of the imaging findings, I feel it necessary to reach out to neurosurgery for an evaluation if not only for documentation purposes, prior to discharging this patient for his safety. The transfer nurse has been notified.
[2025-01-20] MEDS: LIDOCAINE 5% 1 PATCH TOP (13:03)
[2025-01-20] MEDS: HEPARIN SOD INJ 5000 UNIT/ML VIAL SC ×2 (13:04→21:36)
--- NOTE | 2025-01-20 13:22 | PC.CM ---
1255 Patient has [employer] insurance so I contacted [facility] and I spoke to Juliann transfer nurse. I faxed over paperwork and I pushed over images. 1230 I received a referral to transfer patient for neurosurgery. Patient has compression Fx of L1 vertebral body. L5-S1 3mm central lumbar disk buldg and mild bilateral L5 ganglionic comp.
--- NOTE | 2025-01-20 19:36 | EKG_ITS ---
[facility] Test Date: 2025-01-20 Pat Name: KALA DODD [facility] [employer]: RENE : 1935 Requested By: Elissa Ruby Order Number: [id number] Reading MD: Elissa Ruby Measurements Intervals [place] Rate: 60 P: 70 ND: 189 QRS: -28 QRSD: 90 T: 13 QT: 403 QTc: 403 Interpretive Statements SINUS RHYTHM MODERATE VOLTAGE CRITERIA FOR LVH, CONSIDER NORMAL VARIANT INFERIOR MYOCARDIAL INFARCTION , PROBABLY OLD Compared to ECG 01/17/2025 12:33:31 Myocardial infarct finding now present Left-axis deviation no longer present /store/S0/[id number].pdf
[2025-01-21] VITALS (14 sets, daily range): BP systolic 155–185; BP diastolic 67–77; PULSE 56–71; RESP 16–22; TEMP 36.1–36.4; O2SAT 95–99; BMI 24.3
[2025-01-21] MEDS: LEVOTHYROXINE SODIUM 25 MCG TABLET 75 MCG PO (05:49)
[2025-01-21] MEDS: HEPARIN SOD INJ 5000 UNIT/ML VIAL SC ×3 (05:53→22:00)
[2025-01-21 06:47] LABS: Basophils # (Auto) 0.0 Thou/mm3 (0.0-0.2); Basophils % (Auto) 1 % (0-2.5); Eosinophils # (Auto) 0.2 Thou/mm3 (0.0-0.5); Eosinophils % (Auto) 5 % (0-10); Hematocrit 32.8 % (41.0-53.0); Hemoglobin 9.6 g/dL (13.5-16.0); Immature Granulocytes Auto 0.03 Thou/mm3 (0.00-0.00); Lymphocytes # (Auto) 0.6 Thou/mm3 (1.0-4.8); Lymphocytes % (Auto) 15 % (10-50); Mean Corpuscular HGB Conc 29.3 g/dl (31.0-37.0); Mean Corpuscular Hemoglobin 24.2 pg (25.0-35.0); Mean Corpuscular Volume 83 fL (80-100); Monocytes # (Auto) 0.5 Thou/mm3 (0.0-0.8); Monocytes % (Auto) 12 % (0-12); Neutrophils # (Auto) 2.7 Thou/mm3 (1.8-7.7); Neutrophils % (Auto) 66 % (37-80); Nucleated Red Blood Cell # 0.00 Thou/mm3 (0.00-0.00); Nucleated Red Blood Cell % 0 /100 WBC (0); Platelet Count 202 Thou/mm3 (140-440); RDW Standard Deviation 64.9 fL (35.1-43.9); Red Blood Count 3.97 Miln/mm3 (4.50-5.90); White Blood Count 4.1 Thou/mm3 (3.8-10.6)
[2025-01-21 07:16] LABS: Alanine Aminotransferase < 7 U/L (10-49); Albumin, Serum 3.2 gm/dL (3.4-4.8); Albumin/Globulin Ratio 1.7 (1.2-2.2); Alkaline Phosphatase 45 U/L (46-116); Anion Gap 11 (7-16); Aspartate Amino Transferase 15 U/L (0-34); BUN/Creatinine Ratio 16 Ratio (12-20); Bilirubin,Total 0.3 mg/dL (0.3-1.2); Blood Urea Nitrogen 45 mg/dL (9-23); Calcium 8.8 mg/dL (8.3-10.6); Calcium (Corrected) 9.4 mg/dL (8.5-10.1); Carbon Dioxide 23.0 mMol/L (20.0-31.0); Chloride 108 mMol/L (98-107); Creatinine (Component) 2.8 mg/dL (0.6-1.3); Estimated Creatinine Clearance 16.7 mL/min (>60); Globulin 1.9 gm/dL (2.3-3.5); Glucose 84 mg/dL (74-106); Magnesium 1.7 mg/dL (1.6-2.6); Osmolality,Calculated 293 (275-295); Phosphorous 3.5 mg/dL (2.4-5.1); Potassium 3.9 mMol/L (3.4-5.1); Sodium 142 mMol/L (136-145); Total Protein 5.1 gm/dL (5.7-8.2); eGFR 21 See Note
--- NOTE | 2025-01-21 07:21 | PC.CC ---
Addendum entered by Stephanie Cid RN 01/21/25 10:28: 1019: Anthony champagne/ [facility] called, she asked about an MRI. Informed her MRI has not been ordered. She rec that MRI be completed for review as the neuro sx team will request it. I spoke to Dr. Garcia, informed him of request, he stated he will order it. Addendum entered by Stephanie Cid RN 01/21/25 08:50: 0841: Ana called back, made aware of [facility] bed situation. She stated to send ref to [facility], , [facility], and [facility] as they are contracted with them. Addendum entered by Stephanie Cid RN 01/21/25 08:23: 0823: called [facility], [facility] for Ana SOTELO to return my call. Original Note: 0720: called and spoke to Madeleine champagne/ John, she stated they are at bed capacity. She stated to call later today to check again
[2025-01-21] MEDS: DOXYCYCLINE INJ 100 MG in SODIUM CHLORIDE 0.9% (POP) 100 ML IV (10:06)
[2025-01-21] MEDS: METOPROLOL SUCCINATE XL 25 MG TABCR 50 MG PO (10:07)
[2025-01-21] MEDS: cefTRIAXone/D5w 1gm IV premix 1 GM/50 ML BAG IV (10:07)
[2025-01-21] MEDS: FAMOTIDINE 20 MG TABLET PO (10:09)
[2025-01-21] MEDS: THIAMINE 100 MG TABLET PO (10:09)
[2025-01-21] MEDS: DOCUSATE SOD 100 MG CAPSULE PO (10:09)
[2025-01-21] MEDS: SODIUM BICARBONATE 650 MG TABLET PO ×2 (10:10→20:09)
[2025-01-21] MEDS: LIDOCAINE 5% 1 PATCH TOP (11:48)
--- NOTE | 2025-01-21 14:17 | ESPR_ITS ---
<Statement entered by Barber Garcia MD - 01/21/25 17:17> I saw and examined patient personally and supervised PGY 1 resident, Dr. Vigil with formulating a management plan. I agree with the documentation with the exceptions as listed below. Patient is a 89-year-old male past medical history significant for primary hypertension, hypothyroidism, CKD follows with Dr. West, myelodysplastic syndrome follows with Dr. Olivares,? CHF, paroxysmal atrial fibrillation amiodarone who presented today with a chief complaint of chills and left arm pain. Problem list: 1. Moraxella catarrhalis bacteremia secondary to cellulitis?improving 2. Subacute/acute L1 vertebral body fracture 3. Myelodysplastic syndrome 4. Paroxysmal atrial fibrillation 5. CKD 6. Hypothyroidism 7. CAD s/p CABG 8. Chronic alcohol use 9. Primary hypertension Patient is on day 5 ceftriaxone 1 g IV daily and doxycycline 100 mg p.o. twice daily for Moraxella catarrhalis bacteremia secondary to left arm cellulitis. TTE was negative for any vegetations. Patient will remain on treatment to complete a total of 10-day course. On this admission patient complained of lower back pain and also endorsed a history of vertebral body fracture since 2020. Repeat CT lumbar spine noncontrast was ordered which did show subacute/acute L1 vertebral body fracture with concern for possible compression of spinal cord. At this point in time patient's denies any bowel/bladder incontinence and sensation is intact in his lower limbs. However, we do not have neurosurgery or spinal orthopedics available at our center for evaluation. Therefore we will initiate transfer to a tertiary center for neurosurgery evaluation of his acute/subacute L1 vertebral body fracture. Neurosurgery L-spine before further assessment. MR L-spine without contrast was ordered. Plan of care discussed with Attending Dr. Abelardo Garcia MD PGY 2 Disclaimer: This note was dictated by speech recognition. Minor errors in research project manager may be present due to voice recognition software. Documentation for date of: 01/21/25 Subjective Subjective Interval history: No overnight events. Patient was examined at bedside; they appear A&Ox4 and in NAD. Vitals/labs today significant for BP 185/73, Hgb 9.4->9.6, BUN 50->45, and creatinine 2.9->2.8. Physical exam was benign and unchanged from days prior. Blood culture speciation showed Moraxella catarrhalis; due to the above, patient will be sent off with renally-dosed Levaquin (IV if successfully transferred for neurosurgery evaluation, PO if discharged home). In regards to patient's continued hypertension, he will be started on PO metoprolol succinate 50 mg qD, PO amlodipine 5 mg qD, and PO Lasix 20 mg qAM. Current plan remains to transfer patient to a tertiary care facility for neurosurgical evaluation of patient's severe compression fracture of L1 vertebral body; he will require a spinal MRI before this process can be formally initiated. Exam Vital Signs Temp Pulse Resp BP Pulse Ox O2 Del Method 97.4 F 62 18 166/70 H 98 Room Air 01/21/25 12:00 01/21/25 13:36 01/21/25 12:00 01/21/25 13:36 01/21/25 12:00 01/21/25 12:00 Narrative Exam General: No acute distress, well nourished Eye: PERRL, EOMI, normal conjunctiva, no scleral icterus HENT: Normocephalic, atraumatic, normal hearing, pink and moist mucous membranes, no oral lesions in mouth, throat shows no erythema Neck: Supple, non-tender, no JVD, no lymphadenopathy Lungs: Clear to auscultation anteriorly and posteriorly RLL shows expiratory wheezing, non-labored respirations, symmetric chest rise, no use of accessory muscles Heart: Normal S1 and S2, no S3 or S4 appreciated. Normal rate and regular rhythm, no murmurs, rubs gallops, or edema. Peripheral pulses intact bilaterally, capillary refill brisk distally Abdomen: Soft, non-tender, non-distended, normal bowel sounds. No guarding or rebound tenderness. Musculoskeletal: Normal range of motion and strength. Skin: Skin is warm, dry, no rashes or lesions. Neurologic: Alert, awake and oriented x3. CN II-XII grossly intact. No focal neuro deficits. No signs of meningeal irritation noted. NO Signs of conus medullaris including saddle anesthesia, bowel incontinence, or LE weakness or paresthesia. Psychiatric: Cooperative, appropriate mood and affect Objective Labs 01/22/25 04:57 01/22/25 04:57 Labs: Laboratory Results - last 24 hr 01/21/25 04:56 WBC 4.1 RBC 3.97 L Hgb 9.6 L Hct 32.8 L MCV 83 MCH 24.2 L MCHC 29.3 L RDW Std Deviation 64.9 H Plt Count 202 Neut % (Auto) 66 Lymph % (Auto) 15 [place] % (Auto) 12 Eos % (Auto) 5 Baso % (Auto) 1 Neut # (Auto) 2.7 Lymph # (Auto) 0.6 L [place] # (Auto) 0.5 Eos # (Auto) 0.2 Baso # (Auto) 0.0 Immature Gran # (Auto) 0.03 H Absolute Nucleated RBC 0.00 Immature Gran % 1 H Nucleated RBC % 0 Sodium 142 Potassium 3.9 Chloride 108 H Carbon Dioxide 23.0 Anion Gap 11 BUN 45 H Creatinine 2.8 H Estim Creat Clear Calc 16.7 L eGFR 21 L BUN/Creatinine Ratio 16 Glucose 84 Calculated Osmolality 293 Calcium 8.8 Corrected Calcium 9.4 Phosphorus 3.5 Magnesium 1.7 Total Bilirubin 0.3 AST 15 ALT < 7 L Alkaline Phosphatase 45 L Total Protein 5.1 L Albumin 3.2 L Globulin 1.9 L Albumin/Globulin Ratio 1.7 ABG Interpretation ABG results: 01/17/25 15:32 ABG pH 7.44 ABG pCO2 34 ABG pO2 65 L ABG HCO3 23 ABG O2 Saturation 93 ABG Base Excess 0 Quality Measures Quality Measures sepsis Current suspected stage: ruled out Possible source: unknown Blood cultures ordered: yes Antibiotic ordered: Yes Advance care planning discussed with:: patient Assessment & Plan Assessment Current Active Medications: Generic Name Dose Route Start Last Admin Trade Name Freq PRN Reason Stop Dose Admin Acetaminophen 650 mg 01/17/25 17:27 Acetaminophen 325 Mg Tablet PO 02/16/25 17:26 Q6H PRN Fever >100.4, mild pain 1-3 Hydrocodone Bitart/Acetaminophen 1 tab 01/17/25 19:20 Hydrocodone/Apap 5/325 Tablet PO 01/22/25 17:43 Q6HR PRN mod - severe pain (4-10) Amlodipine Besylate 5 mg 01/21/25 09:00 01/21/25 10:08 Amlodipine Besylate 5 Mg Tablet PO 02/20/25 08:59 5 mg QDAY YELENA Administration Docusate Sodium 100 mg 01/17/25 17:45 01/21/25 10:09 Docusate Sod 100 Mg Capsule PO 02/16/25 17:44 100 mg QDAY YELENA Administration Protocol Famotidine 20 mg 01/17/25 21:00 01/21/25 10:09 Famotidine 20 Mg Tablet PO 02/16/25 20:59 20 mg BID YELENA Administration Furosemide 20 mg 01/21/25 09:00 01/21/25 10:08 Furosemide 20 Mg Tablet PO 02/20/25 08:59 20 mg QAM YELENA Administration Heparin Sodium (Porcine) 5,000 unit 01/20/25 14:00 01/21/25 13:35 Heparin Sod Inj 5000 Unit/Ml Vial SC 02/03/25 13:59 5,000 unit Q8HR YELENA Administration Hydralazine HCl 10 mg 01/19/25 13:08 01/20/25 04:08 Hydralazine Inj 20 Mg/Ml Vial IVP 02/18/25 13:07 10 mg Q6HR PRN Administration Hypertension Hydralazine HCl 25 mg 01/20/25 09:30 01/21/25 13:36 Hydralazine Hcl 25 Mg Tablet PO 02/19/25 09:29 25 mg TID YELENA Administration Ceftriaxone Sodium/Dextrose 1 gm in 50 mls @ 100 mls/hr 01/18/25 09:00 01/21/25 10:07 Rocephin/D5w 1gm Iv Premix IV 01/25/25 08:59 100 mls/hr QDAY YELENA Administration Doxycycline Hyclate 100 mg/ 100 mls @ 100 mls/hr 01/17/25 21:00 01/21/25 10:06 Sodium Chloride IV 01/24/25 20:59 100 mls/hr BID YELENA Administration Levothyroxine Sodium 75 mcg 01/18/25 06:00 01/21/25 05:49 Levothyroxine Sodium 25 Mcg Tablet PO 02/17/25 05:59 75 mcg ACBR YELENA Administration Lidocaine 1 patch 01/18/25 11:30 01/21/25 11:48 Lidocaine 5% 1 Patch TOP 02/17/25 11:29 1 patch UD YELENA Administration Protocol Lisinopril 40 mg 01/19/25 09:00 01/21/25 10:08 Lisinopril 20 Mg Tablet PO 02/18/25 08:59 40 mg QDAY YELENA Administration Lorazepam 1 mg 01/17/25 19:15 Lorazepam 0.5 Mg Tablet PO 01/22/25 19:14 X1 PRN AGITATION Metoprolol Succinate 50 mg 01/21/25 09:00 01/21/25 10:07 Metoprolol Succinate Xl 25 Mg Tabcr PO 02/20/25 08:59 50 mg QDAY YELENA Administration Ondansetron HCl 4 mg 01/17/25 17:33 Ondansetron Inj 2 Mg/Ml Inj 2 Ml IVP 02/16/25 17:32 Q6H PRN NAUSEA OR VOMITING Protocol Sodium Bicarbonate 650 mg 01/20/25 09:00 01/21/25 10:10 Sodium Bicarbonate 650 Mg Tablet PO 02/19/25 08:59 650 mg BID YELENA Administration Thiamine HCl 100 mg 01/17/25 19:30 01/21/25 10:09 Thiamine 100 Mg Tablet PO 02/16/25 19:29 100 mg QDAY YELENA Administration Plan Patient is a 89-year-old male past medical history significant for primary hypertension, hypothyroidism, CKD follows with Dr. West, myelodysplastic syndrome follows with Dr. Olivares,? CHF, paroxysmal atrial fibrillation on amiodarone who presented today with a chief complaint of chills and left arm pain. #GNR bacteremia 2/2 cellulitis, improving Patient initially presented with erythema and pain of the left arm and 01/17 BCxs showed 2/2 growth of GNR Cellulitis presentation has improved dramatically and is considered resolved Dx: -TTE negative for vegetations -BCx speciation resulted on 01/21 as Moraxella catarrhalis Rx: -IV ceftriaxone 1 g qD [01/17--] -PO doxycycline 100 mg BID [01/17--] -Will be sent off with renally dosed Levaquin (either IV or PO depending whether he is transferred or discharged home) #Primary hypertension Patient's BP on 01/17 was elevated with systolic in the 180s On home metoprolol and patient also reports hydralazine but this was not seen on medication reconciliation Rx: -PO lisinopril 40 mg qD -PO hydralazine 25 mg TID -PO metoprolol succinate 50 mg qD -PO amlodipine 5 mg qD -PO furosemide 20 mg qAM -IV hydralazine 10 mg q6HR prn #Subacute/acute L1 vertebral body fracture Dx: -01/[address] showed subacute/acute severe compression fracture of L1 vertebral body (MRI lumbar spine recommended to assess compression of the conus medullaris 2/2 retropulsion of this compressed vertebral body) -01/20 physical exam negative for findings suggestive of conus medullaris (lack of bowel incontinence and loss of sensation in lower limbs) Dx: -01/21 spinal MRI ordered to facilitate transfer, results pending Rx: -Initiate transfer to a tertiary center for neurosurgery evaluation -PT evaluation complete, awaiting recommendations -Back brace has been obtained for patient #Myelodysplastic syndrome #Normocytic anemia 01/17 admission Hgb 10.6 (MCV 81, RDW 65.3) Follows oncologist (Dr. Olivares) in the outpatient setting Rx: -CTM CBC -Transfuse if Hgb<7 -Outpatient oncology follow-up #Paroxysmal atrial fibrillation Home medication: PO amiodarone 200 mg qD Currently not in atrial fibrillation (stable) Rx: -PO metoprolol succinate 50 mg qD #ANTHONY on CKD 01/17 admission creatinine 3.2 (baseline: unknown) 01/21 creatinine down-trended to 2.8 Rx: -PO sodium bicarbonate 650 mg BID #Hypothyroidism Dx: -01/18 TSH 3.08 (WNL) Rx: -PO levothyroxine 75 mcg ACBR #CAD s/p CABG Stable Rx: -Continue to monitor #Chronic alcohol use Rx: -PO thiamine 100 mg qD Hospital Management: Disposition: Awaiting spinal MRI results before patient can be transferred to tertiary center for neurosurgical evaluation Diet: Cardiac GI Prophylaxis: PO Pepcid 20 mg BID Bowel Prophylaxis: PO Colace 100 mg qD DVT Prophylaxis: SC Heparin 5K q8HR CODE STATUS: Full Code I have examined the patient and conferred with my attending, Dr. Zhou, and my senior resident, Dr. Garcia, regarding them. Robert George DO PGY-1 Internal Medicine Attending Provider Attestation/Addendum I have discussed and was present for the essential components of the history, physical examination, diagnosis, and treatment plan with the resident. I agree with the patient's care as documented by the resident and amended herein by me. Kavon Zhou DO. Although this document has been carefully reviewed, there may still be some phonetic and other typographical errors. These errors are purely grammatical due to imperfections in the software program and should not be construed in any way to compromise the substance of the patient's medical care during this visit.
[2025-01-22] VITALS (18 sets, daily range): BP systolic 153–194; BP diastolic 72–86; PULSE 55–114; RESP 15–18; TEMP 36.1–36.7; O2SAT 96–98
[2025-01-22] MEDS: hydrALAZINE INJ 20 MG/ML VIAL 10 MG IVP ×2 (03:21→17:17)
[2025-01-22] MEDS: HEPARIN SOD INJ 5000 UNIT/ML VIAL SC ×3 (05:19→22:02)
[2025-01-22] MEDS: LEVOTHYROXINE SODIUM 25 MCG TABLET 75 MCG PO (05:19)
[2025-01-22 05:46] LABS: Basophils # (Auto) 0.1 Thou/mm3 (0.0-0.2); Basophils % (Auto) 2 % (0-2.5); Eosinophils # (Auto) 0.3 Thou/mm3 (0.0-0.5); Eosinophils % (Auto) 7 % (0-10); Hematocrit 33.8 % (41.0-53.0); Hemoglobin 10.0 g/dL (13.5-16.0); Immature Granulocytes Auto 0.03 Thou/mm3 (0.00-0.00); Lymphocytes # (Auto) 0.8 Thou/mm3 (1.0-4.8); Lymphocytes % (Auto) 19 % (10-50); Mean Corpuscular HGB Conc 29.6 g/dl (31.0-37.0); Mean Corpuscular Hemoglobin 24.4 pg (25.0-35.0); Mean Corpuscular Volume 83 fL (80-100); Monocytes # (Auto) 0.6 Thou/mm3 (0.0-0.8); Monocytes % (Auto) 13 % (0-12); Neutrophils # (Auto) 2.4 Thou/mm3 (1.8-7.7); Neutrophils % (Auto) 59 % (37-80); Nucleated Red Blood Cell # 0.00 Thou/mm3 (0.00-0.00); Nucleated Red Blood Cell % 0 /100 WBC (0); Platelet Count 197 Thou/mm3 (140-440); RDW Standard Deviation 63.4 fL (35.1-43.9); Red Blood Count 4.09 Miln/mm3 (4.50-5.90); White Blood Count 4.2 Thou/mm3 (3.8-10.6)
[2025-01-22 06:33] LABS: Alanine Aminotransferase < 7 U/L (10-49); Albumin, Serum 3.3 gm/dL (3.4-4.8); Albumin/Globulin Ratio 1.7 (1.2-2.2); Alkaline Phosphatase 47 U/L (46-116); Anion Gap 10 (7-16); Aspartate Amino Transferase 16 U/L (0-34); BUN/Creatinine Ratio 15 Ratio (12-20); Bilirubin,Total 0.3 mg/dL (0.3-1.2); Blood Urea Nitrogen 40 mg/dL (9-23); Calcium 8.5 mg/dL (8.3-10.6); Calcium (Corrected) 9.1 mg/dL (8.5-10.1); Carbon Dioxide 21.8 mMol/L (20.0-31.0); Chloride 109 mMol/L (98-107); Creatinine (Component) 2.7 mg/dL (0.6-1.3); Estimated Creatinine Clearance 16.7 mL/min (>60); Globulin 1.9 gm/dL (2.3-3.5); Glucose 82 mg/dL (74-106); Magnesium 1.7 mg/dL (1.6-2.6); Osmolality,Calculated 289 (275-295); Phosphorous 3.4 mg/dL (2.4-5.1); Potassium 4.2 mMol/L (3.4-5.1); Sodium 141 mMol/L (136-145); Total Protein 5.2 gm/dL (5.7-8.2); eGFR 22 See Note
[2025-01-22] MEDS: DOCUSATE SOD 100 MG CAPSULE PO (08:58)
[2025-01-22] MEDS: cefTRIAXone/D5w 1gm IV premix 1 GM/50 ML BAG IV (08:58)
[2025-01-22] MEDS: THIAMINE 100 MG TABLET PO (08:59)
[2025-01-22] MEDS: SODIUM BICARBONATE 650 MG TABLET PO ×2 (09:00→20:11)
--- NOTE | 2025-01-22 09:08 | PC.CM ---
Addendum entered by Sveta Rosado RN 01/22/25 17:02: I spoke to Anthony at [facility] in [place] and she states they closed out the case yesterday evening. I let her know we are still needing a transfer. She asked if I obtained authorization from insurance. I let her know that Kevin from [facility] is aware that we are trying to transfer to [facility] for higher level of care. I initiated a transfer at this time. I provided the number to Dr. Pratt for peer to peer. Anthony called me back and she states e Dr. Wilson spoke to Dr. Pratt to do a peer to peer. Dr. Wilson states patient does not need an acute transfer and he can follow up with his PCP to get an outpatient referral after he discharges. I spoke to Dr. Pratt and he agrees with Dr. Wilson. Dr. Pratt canceled the transfer request at this time. Addendum entered by Sveta Rosado RN 01/22/25 16:31: 1640 I called and I left a message with [facility] letting them know I faxed over the MRI. I updated packet. Addendum entered by Sveta Rosado RN 01/22/25 15:46: I faxed the MRI results to [facility]. Original Note: Patient needs transfer for compression fx of L1 vertebral body. [facility] will review patient once we have the MRI completed. [facility] declined do to capacity.
[2025-01-22] MEDS: METOPROLOL SUCCINATE XL 25 MG TABCR 50 MG PO (09:24)
--- NOTE | 2025-01-22 10:38 | PD.RESPRO ---
Documentation for date of: 01/22/25 Exam Vital Signs Temp Pulse Resp BP Pulse Ox O2 Del Method 97.9 F 60 18 153/74 H 97 Room Air 01/22/25 08:00 01/22/25 09:24 01/22/25 08:00 01/22/25 09:24 01/22/25 08:00 01/22/25 08:00 Narrative Exam General: No acute distress, well nourished Eye: PERRL, EOMI, normal conjunctiva, no scleral icterus HENT: Normocephalic, atraumatic, normal hearing, pink and moist mucous membranes, no oral lesions in mouth, throat shows no erythema Neck: Supple, non-tender, no JVD, no lymphadenopathy Lungs: Clear to auscultation anteriorly and posteriorly RLL shows expiratory wheezing, non-labored respirations, symmetric chest rise, no use of accessory muscles Heart: Normal S1 and S2, no S3 or S4 appreciated. Normal rate and regular rhythm, no murmurs, rubs gallops, or edema. Peripheral pulses intact bilaterally, capillary refill brisk distally Abdomen: Soft, non-tender, non-distended, normal bowel sounds. No guarding or rebound tenderness. Musculoskeletal: Normal range of motion and strength. Skin: Skin is warm, dry, no rashes or lesions. Neurologic: Alert, awake and oriented x3. CN II-XII grossly intact. No focal neuro deficits. No signs of meningeal irritation noted. NO Signs of conus medullaris including saddle anesthesia, bowel incontinence, or LE weakness or paresthesia. Psychiatric: Cooperative, appropriate mood and affect Objective Labs 01/22/25 04:57 01/22/25 04:57 Labs: Laboratory Results - last 24 hr 01/22/25 04:57 WBC 4.2 RBC 4.09 L Hgb 10.0 L Hct 33.8 L MCV 83 MCH 24.4 L MCHC 29.6 L RDW Std Deviation 63.4 H Plt Count 197 Neut % (Auto) 59 Lymph % (Auto) 19 [place] % (Auto) 13 H Eos % (Auto) 7 Baso % (Auto) 2 Neut # (Auto) 2.4 Lymph # (Auto) 0.8 L [place] # (Auto) 0.6 Eos # (Auto) 0.3 Baso # (Auto) 0.1 Immature Gran # (Auto) 0.03 H Absolute Nucleated RBC 0.00 Immature Gran % 1 H Nucleated RBC % 0 Sodium 141 Potassium 4.2 Chloride 109 H Carbon Dioxide 21.8 Anion Gap 10 BUN 40 H Creatinine 2.7 H Estim Creat Clear Calc 16.7 L eGFR 22 L BUN/Creatinine Ratio 15 Glucose 82 Calculated Osmolality 289 Calcium 8.5 Corrected Calcium 9.1 Phosphorus 3.4 Magnesium 1.7 Total Bilirubin 0.3 AST 16 ALT < 7 L Alkaline Phosphatase 47 Total Protein 5.2 L Albumin 3.3 L Globulin 1.9 L Albumin/Globulin Ratio 1.7 ABG Interpretation ABG results: 01/17/25 15:32 ABG pH 7.44 ABG pCO2 34 ABG pO2 65 L ABG HCO3 23 ABG O2 Saturation 93 ABG Base Excess 0 Quality Measures Quality Measures sepsis Possible source: unknown Blood cultures ordered: yes Assessment & Plan Assessment Current Active Medications: Generic Name Dose Route Start Last Admin Trade Name Freq PRN Reason Stop Dose Admin Acetaminophen 650 mg 01/17/25 17:27 Acetaminophen 325 Mg Tablet PO 02/16/25 17:26 Q6H PRN Fever >100.4, mild pain 1-3 Hydrocodone Bitart/Acetaminophen 1 tab 01/17/25 19:20 Hydrocodone/Apap 5/325 Tablet PO 01/22/25 17:43 Q6HR PRN mod - severe pain (4-10) Amlodipine Besylate 5 mg 01/21/25 09:00 01/22/25 09:00 Amlodipine Besylate 5 Mg Tablet PO 02/20/25 08:59 5 mg QDAY YELENA Administration Docusate Sodium 100 mg 01/17/25 17:45 01/22/25 08:58 Docusate Sod 100 Mg Capsule PO 02/16/25 17:44 100 mg QDAY YELENA Administration Protocol Famotidine 20 mg 01/23/25 09:00 Famotidine 20 Mg Tablet PO 02/22/25 08:59 QOD YELENA Furosemide 20 mg 01/21/25 09:00 01/22/25 09:01 Furosemide 20 Mg Tablet PO 02/20/25 08:59 20 mg QAM YELENA Administration Heparin Sodium (Porcine) 5,000 unit 01/20/25 14:00 01/22/25 05:19 Heparin Sod Inj 5000 Unit/Ml Vial SC 02/03/25 13:59 5,000 unit Q8HR YELENA Administration Hydralazine HCl 10 mg 01/19/25 13:08 01/22/25 03:21 Hydralazine Inj 20 Mg/Ml Vial IVP 02/18/25 13:07 10 mg Q6HR PRN Administration Hypertension Hydralazine HCl 25 mg 01/20/25 09:30 01/22/25 05:21 Hydralazine Hcl 25 Mg Tablet PO 02/19/25 09:29 25 mg TID YELENA Administration Ceftriaxone Sodium/Dextrose 1 gm in 50 mls @ 100 mls/hr 01/18/25 09:00 01/22/25 08:58 Rocephin/D5w 1gm Iv Premix IV 01/25/25 08:59 100 mls/hr QDAY YELENA Administration Levothyroxine Sodium 75 mcg 01/18/25 06:00 01/22/25 05:19 Levothyroxine Sodium 25 Mcg Tablet PO 02/17/25 05:59 75 mcg ACBR YELENA Administration Lidocaine 1 patch 01/18/25 11:30 01/21/25 11:48 Lidocaine 5% 1 Patch TOP 02/17/25 11:29 1 patch UD YELENA Administration Protocol Lisinopril 40 mg 01/19/25 09:00 01/22/25 08:59 Lisinopril 20 Mg Tablet PO 02/18/25 08:59 40 mg QDAY EYLENA Administration Lorazepam 1 mg 01/17/25 19:15 Lorazepam 0.5 Mg Tablet PO 01/22/25 19:14 X1 PRN AGITATION Metoprolol Succinate 50 mg 01/21/25 09:00 01/22/25 09:24 Metoprolol Succinate Xl 25 Mg Tabcr PO 02/20/25 08:59 50 mg QDAY YELENA Administration Ondansetron HCl 4 mg 01/17/25 17:33 Ondansetron Inj 2 Mg/Ml Inj 2 Ml IVP 02/16/25 17:32 Q6H PRN NAUSEA OR VOMITING Protocol Pharmacy Consult 1 each 01/21/25 17:17 Pharmacy Renal Dose Adjustment 1 Ea XX 02/20/25 17:16 PRN PRN CONSULT Sodium Bicarbonate 650 mg 01/20/25 09:00 01/22/25 09:00 Sodium Bicarbonate 650 Mg Tablet PO 02/19/25 08:59 650 mg BID YELENA Administration Thiamine HCl 100 mg 01/17/25 19:30 01/22/25 08:59 Thiamine 100 Mg Tablet PO 02/16/25 19:29 100 mg QDAY YELENA Administration Plan Patient is a 89-year-old male past medical history significant for primary hypertension, hypothyroidism, CKD follows with Dr. West, myelodysplastic syndrome follows with Dr. Olivares,? CHF, paroxysmal atrial fibrillation on amiodarone who presented today with a chief complaint of chills and left arm pain. #GNR bacteremia 2/2 cellulitis, improving Patient initially presented with erythema and pain of the left arm and 01/17 BCxs showed 2/2 growth of GNR Cellulitis presentation has improved dramatically and is considered resolved Dx: -TTE negative for vegetations -BCx speciation resulted on 01/21 as Moraxella catarrhalis Rx: -IV ceftriaxone 1 g qD [01/17--] -PO doxycycline 100 mg BID [01/17--] -Will be sent off with renally dosed Levaquin (either IV or PO depending whether he is transferred or discharged home) #Primary hypertension Patient's BP on 01/17 was elevated with systolic in the 180s On home metoprolol and patient also reports hydralazine but this was not seen on medication reconciliation Rx: -PO lisinopril 40 mg qD -PO hydralazine 25 mg TID -PO metoprolol succinate 50 mg qD -PO amlodipine 5 mg qD -PO furosemide 20 mg qAM -IV hydralazine 10 mg q6HR prn #Subacute/acute L1 vertebral body fracture Dx: -01/[address] showed subacute/acute severe compression fracture of L1 vertebral body (MRI lumbar spine recommended to assess compression of the conus medullaris 2/2 retropulsion of this compressed vertebral body) -01/20 physical exam negative for findings suggestive of conus medullaris (lack of bowel incontinence and loss of sensation in lower limbs) Dx: -01/21 spinal MRI ordered to facilitate transfer, results pending Rx: -Initiate transfer to a tertiary center for neurosurgery evaluation -PT evaluation complete, awaiting recommendations -Back brace has been obtained for patient #Myelodysplastic syndrome #Normocytic anemia 01/17 admission Hgb 10.6 (MCV 81, RDW 65.3) Follows oncologist (Dr. Olivares) in the outpatient setting Rx: -CTM CBC -Transfuse if Hgb<7 -Outpatient oncology follow-up #Paroxysmal atrial fibrillation Home medication: PO amiodarone 200 mg qD Currently not in atrial fibrillation (stable) Rx: -PO metoprolol succinate 50 mg qD #ANTHONY on CKD 01/17 admission creatinine 3.2 (baseline: unknown) 01/21 creatinine down-trended to 2.8 Rx: -PO sodium bicarbonate 650 mg BID #Hypothyroidism Dx: -01/18 TSH 3.08 (WNL) Rx: -PO levothyroxine 75 mcg ACBR #CAD s/p CABG Stable Rx: -Continue to monitor #Chronic alcohol use Rx: -PO thiamine 100 mg qD Hospital Management: Disposition: Awaiting spinal MRI results before patient can be transferred to tertiary center for neurosurgical evaluation Diet: Cardiac GI Prophylaxis: PO Pepcid 20 mg BID Bowel Prophylaxis: PO Colace 100 mg qD DVT Prophylaxis: SC Heparin 5K q8HR CODE STATUS: Full Code I have examined the patient and conferred with my attending, Dr. Zhou, and my senior resident, Dr. Garcia, regarding them. Robert George DO PGY-1 Internal Medicine
--- NOTE | 2025-01-22 10:51 | XR_ITS ---
Examination: MRI lumbar spine without contrast Date and time of exam: January 22, 2025, 1132 hours INDICATIONS: Ground-level fall November 14, 2024 with back pain Technique: Multiple MRI axial and sagittal sections lumbar spine. Sagittal T2-weighted images, TR 3500, TE 118 T1 weighted transverse sections, TR 688 T8.5, T2-weighted sagittal sections T1 weighted sagittal sections TR 621, TE 30 T2 axial sections, TR 4, 190, TE 84. Findings: Subacute severe compression fracture L1, reduction in height 80 to 90% Retropulsion of the posterior superior margin of this vertebral body 7 mm contiguous with the cauda equina Moderate chronic compression L2 Diffuse lumbar disc desiccation L5-S1 no disc protrusion L4-L5 bilateral foraminal disc bulges but no ganglionic impression L3-L4 moderate overall spinal stenosis, axial image 8, 4 mm central lumbar disc bulge, facet arthropathy and thickening of ligamentum flavum circumferentially narrowing the spinal canal with mild left L3 ganglionic compression L2-L3 left foraminal disc bulge 8 mm with moderate left L2 ganglionic compression L1-2 no disc protrusion IMPRESSION: Subacute severe compression fracture of L1, retropulsion posterior superior margin of this vertebral body 7 mm L3-L4 moderate overall spinal stenosis including mild left L3 ganglionic compression L2-L3 8 mm left foraminal disc bulge moderate left L2 ganglionic compression
[2025-01-22] MEDS: LIDOCAINE 5% 1 PATCH TOP (12:57)
--- NOTE | 2025-01-22 17:07 | ESDS_ITS ---
<Statement entered by Barber Garcia MD - 01/22/25 20:24> I saw and examined patient personally and supervised PGY 1 resident, Dr. George with formulating a management plan. I agree with the documentation with the exceptions as listed below. Patient was admitted for chills and treated for Moraxella catarrhalis bacteremia levofloxacin. He will be discharged on levofloxacin 500 mg every 48 hourly to complete 4 more doses. All patient's labs are now returning to his baseline. Clinically stable and fit for discharge home. Plan of care discussed with Attending Dr. Terence Garcia MD PGY 2 Disclaimer: This note was dictated by speech recognition. Minor errors in parking meter mechanic may be present due to voice recognition software. Planned Discharge Date 01/22/25 DS: Providers Provider Date of admission: 01/17/25 17:39 Primary care physician: Mik Mckeon MD Admitting Provider: Sanjiv Zhou DO Attending Provider on Admission: Brian Pratt MD Consults: 01/18/25 09:27 Referral Physical Therapy Routine Comment: Physician Instructions: Instructions: L2 fracture. ?back brace 01/18/25 11:22 Referral Wound Care Routine Comment: 01/19/25 06:22 Referral Wound Care Routine Comment: stage 3 pressure injury to lower back 01/20/25 12:22 Referral - Rn X Ray Routine Service Needed for Transfer: Neurosurgery Addl Comments:: Subacute/acute severe compression fracture of L1 vertebral body - Possible compression of conus medullaris L5-S1 3 mm central lumbar disc bulge and mild bilateral L5 ganglionic compression 01/20/25 12:23 Referral - Rn X Ray Stat Service Needed for Transfer: Neurosurgery Addl Comments:: Need neurosurgery, assessment of subacute/acute L1 Compression fracture. MRI pending Attending Provider on DC: Brian Pratt MD Discharging Provider: Robert George DO DS: Diagnosis Problem List Completed Was Problem List Reviewed/Reconciled?: Yes Hospital Course Hospital Course Hospital course: Summary: Patient is a 89-year-old male past medical history significant for primary hypertension, hypothyroidism, CKD follows with Dr. Gloria, myelodysplastic syndrome follows with Dr. Olivares, CHF, paroxysmal atrial fibrillation on ami odarone who presented on 01/17/25 with a chief complaint of chills and left arm pain. ER: In the ED, Vitals showing hypertensive at 160/60, labs notable WBC 13.0, Hbg 10.6, Hct 34.5. D-dimer 2690. BMP BUN 46, Cr 3.2. eGFR 18. CRP 1.5, Pro-Richard 1.16. BNP 621. 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 Hospital: During patient's hospital course, he was treated with IV Rocephin and IV doxycyline for his infectious presentation that was later determined to be due to left arm cellulitis and subsequent Moraxella catarrhalis bacteremia. Patient's blood pressure was markedly elevated throughout his entire admission and treated with PO lisinopril, hydralazine, metoprolol, amlodipine, and furosemide. He was also placed on CIWA due to his reported drinking history. Due to patient's reported ground-level fall on 11/14, he underwent lumbar spine XR, CT, and finally MRI which found a subacute severe compression fracture of L1, retropulsion of the posterior superior margin of L1 7 mm contiguous with the cauda equina, and moderate overall spinal stenosis of L3-L4. Patient was not noted to have any symptoms of conus medullaris or other neurological deficits that could indicate spinal compression. By 01/22, patient was deemed clinically stabilized and was discharged home after [facility]surgery evaluated his case and recommended outpatient follow-up for his severe L1 compression fracture. Patient is safe to discharge to home. Further discharge instructions below. Instructions: -Levofloxacin 500 mg every other day starting January 24, 2025 for 4 additional doses -New dose of Amlodipine 10 mg once daily, stop your amlodipine 5 mg once daily. Amlodipine is for your blood pressure. -Continue vitamin B1 as needed, follow up with your primary care provider. -Continue all other medications as prescribed. -Please follow up with your primary care provider within one week of discharge -If your symptoms worsen,please seek immediate medical attention and return to your nearest emergency room -If you do not have a primary care provider, you may follow up at the [facility] at [address], [place] [address], #Moraxella catarrhalis bacteremia 2/2 cellulitis, improving #Subacute/acute L1 vertebral body fracture #SIRS #Myelodysplastic syndrome #Paroxysmal atrial fibrillation #CKD #Hypothyroidism #CAD s/p CABG #Chronic alcohol use #Primary hypertension Status at Discharge Cognitive/Behavioral Status at Discharge: stable Functional Status at Discharge: independent ambulation Overall Status at Discharge: patient is back to baseline Patient's care plan was discussed with my attending, Dr. Pratt, and senior resident, Dr. Garcia. Robert George, DO Internal Medicine, PGY-1 Time Spent with Patient Time attestation: Total time spent providing and/or coordinating discharge services: 32 min Time spent: Greater than 30 minutes Exam Vital Signs Temp Pulse Resp BP Pulse Ox O2 Del Method 97.5 F 68 16 194/83 H 97 Room Air 01/22/25 15:59 01/22/25 15:59 01/22/25 15:59 01/22/25 15:59 01/22/25 15:59 01/22/25 15:59 Narrative Exam General: No acute distress, well nourished Eye: PERRL, EOMI, normal conjunctiva, no scleral icterus HENT: Normocephalic, atraumatic, normal hearing, pink and moist mucous membranes, no oral lesions in mouth, throat shows no erythema Neck: Supple, non-tender, no JVD, no lymphadenopathy Lungs: Clear to auscultation anteriorly and posteriorly RLL shows expiratory wheezing, non-labored respirations, symmetric chest rise, no use of accessory muscles Heart: Normal S1 and S2, no S3 or S4 appreciated. Normal rate and regular rhythm, no murmurs, rubs gallops, or edema. Peripheral pulses intact bilaterally, capillary refill brisk distally Abdomen: Soft, non-tender, non-distended, normal bowel sounds. No guarding or rebound tenderness. Musculoskeletal: Normal range of motion and strength. Skin: Skin is warm, dry, no rashes or lesions. Neurologic: Alert, awake and oriented x3. CN II-XII grossly intact. No focal neuro deficits. No signs of meningeal irritation noted. No signs of conus medullaris including saddle anesthesia, bowel incontinence, or LE weakness or paresthesia. Psychiatric: Cooperative, appropriate mood and affect Discharge Plan Plan Patient Disposition: HOME (Self Care) Patient condition on transfer: Stable Care Plan Goals: Instructions: -Levofloxacin 500 mg every other day starting January 24, 2025 for 4 additional doses -New dose of Amlodipine 10 mg once daily, stop your amlodipine 5 mg once daily. Amlodipine is for your blood pressure. - New dose of Hydralazine -Check your Blood pressure daily and keep a record for your Primary doctor -Continue vitamin B1 as needed, follow up with your primary care provider. -Continue all other medications as prescribed. --Please follow up with your primary care provider within one week of discharge -If your symptoms worsen,please seek immediate medical attention and return to your nearest emergency room -If you do not have a primary care provider, you may follow up at the [facility] at [facility] [address], [place] [address], Prescriptions/Referrals Prescriptions/Med Rec: New levofloxacin 500 mg tablet 500 mg PO .QOD 4 Days Qty: 4 0RF Rx Instructions: First dose to start on 01/24/2025 and every other day until you finish a total of 4 days. amlodipine 10 mg tablet 10 mg PO QDAY 90 Days Qty: 90 0RF metoprolol succinate 25 mg Tablet Extended Release 24 Hr 50 mg PO QDAY 90 Days Qty: 180 0RF thiamine mononitrate (vit B1) 100 mg Tablet 100 mg PO QDAY 90 Days Qty: 90 0RF hydralazine 50 mg tablet 50 mg PO TID 30 Days Qty: 90 0RF (DME) blood pressure monitor [Blood Pressure Kit] Kit See Rx Instructions .Route Qty: 1 0RF Rx Instructions: As directed (DME) Blood Pressure Cuff [facility] See Rx Instructions .Route Qty: 1 0RF Rx Instructions: As directed Continued sodium bicarbonate 650 mg tablet 650 mg PO BID hydrocodone-acetaminophen 5-325 mg tablet 1 tab PO PRN PRN (Reason: pain (scale score 4-6)) atorvastatin 40 mg tablet 40 mg PO QDAY furosemide 40 mg tablet 40 mg PO QDAY levothyroxine 75 mcg tablet 75 mcg PO QDAY lisinopril 40 mg tablet 40 mg PO QDAY Discontinued amlodipine 5 mg tablet 5 mg PO QDAY Referrals: [facility] [Outside] Mik Mckeon MD [Primary Care Provider] Patient/Caregiver Discharge Instructions Education Materials: ED High Blood Pressure ... Print Language: Bengali Stand Alone Forms: Keren Award Info., Patient Portal Info Letter Discharge Order Discharge Orders: Discharge (Routine); Ordered 01/23/25 Ordered By: Barber Garcia Quality Discharge Quality Measures VTE prophylaxis MD Attestestation MD Attestation I have seen and examined the patient. I was physically present for the foster portions of the services provided including history, physical exam, diagnosis, treatment plans and orders. I agree with assessment and plan of care as documented by residents. Even though this this note was carefully revised there may still be minor errors in parking meter mechanic due to voice recognition software. Brian Pratt MD
[2025-01-22] MEDS: LEVOFLOXACIN 250 MG TABLET 750 MG PO (18:32)
[2025-01-22] MEDS: BALSAM PERU/CASTOR OIL (Venelex) 60 GM TUBE TOP (20:11)
[2025-01-23] VITALS (13 sets, daily range): BP systolic 170–198; BP diastolic 73–87; PULSE 58–77; RESP 18–20; TEMP 36.3–36.8; O2SAT 96–97
[2025-01-23] MEDS: hydrALAZINE INJ 20 MG/ML VIAL 10 MG IVP (00:27)
[2025-01-23] MEDS: LEVOTHYROXINE SODIUM 25 MCG TABLET 75 MCG PO (05:15)
[2025-01-23] MEDS: HEPARIN SOD INJ 5000 UNIT/ML VIAL SC (05:17)
[2025-01-23 05:41] LABS: Basophils # (Auto) 0.1 Thou/mm3 (0.0-0.2); Basophils % (Auto) 2 % (0-2.5); Eosinophils # (Auto) 0.2 Thou/mm3 (0.0-0.5); Eosinophils % (Auto) 4 % (0-10); Hematocrit 35.3 % (41.0-53.0); Hemoglobin 10.1 g/dL (13.5-16.0); Immature Granulocytes Auto 0.06 Thou/mm3 (0.00-0.00); Lymphocytes # (Auto) 0.7 Thou/mm3 (1.0-4.8); Lymphocytes % (Auto) 16 % (10-50); Mean Corpuscular HGB Conc 28.6 g/dl (31.0-37.0); Mean Corpuscular Hemoglobin 23.7 pg (25.0-35.0); Mean Corpuscular Volume 83 fL (80-100); Monocytes # (Auto) 0.5 Thou/mm3 (0.0-0.8); Monocytes % (Auto) 12 % (0-12); Neutrophils # (Auto) 2.7 Thou/mm3 (1.8-7.7); Neutrophils % (Auto) 65 % (37-80); Nucleated Red Blood Cell # 0.00 Thou/mm3 (0.00-0.00); Nucleated Red Blood Cell % 0 /100 WBC (0); Platelet Count 243 Thou/mm3 (140-440); RDW Standard Deviation 64.7 fL (35.1-43.9); Red Blood Count 4.27 Miln/mm3 (4.50-5.90); White Blood Count 4.2 Thou/mm3 (3.8-10.6)
[2025-01-23 06:34] LABS: Alanine Aminotransferase < 7 U/L (10-49); Albumin, Serum 3.3 gm/dL (3.4-4.8); Albumin/Globulin Ratio 1.7 (1.2-2.2); Alkaline Phosphatase 50 U/L (46-116); Anion Gap 11 (7-16); Aspartate Amino Transferase 15 U/L (0-34); BUN/Creatinine Ratio 13 Ratio (12-20); Bilirubin,Total 0.4 mg/dL (0.3-1.2); Blood Urea Nitrogen 33 mg/dL (9-23); Calcium 8.6 mg/dL (8.3-10.6); Calcium (Corrected) 9.2 mg/dL (8.5-10.1); Carbon Dioxide 22.8 mMol/L (20.0-31.0); Chloride 107 mMol/L (98-107); Creatinine (Component) 2.6 mg/dL (0.6-1.3); Estimated Creatinine Clearance 17.4 mL/min (>60); Globulin 2.0 gm/dL (2.3-3.5); Glucose 85 mg/dL (74-106); Magnesium 1.6 mg/dL (1.6-2.6); Osmolality,Calculated 287 (275-295); Phosphorous 3.4 mg/dL (2.4-5.1); Potassium 4.1 mMol/L (3.4-5.1); Sodium 141 mMol/L (136-145); Total Protein 5.3 gm/dL (5.7-8.2); eGFR 23 See Note
[2025-01-23] MEDS: DOCUSATE SOD 100 MG CAPSULE PO (08:53)
[2025-01-23] MEDS: METOPROLOL SUCCINATE XL 25 MG TABCR 50 MG PO (08:53)
[2025-01-23] MEDS: SODIUM BICARBONATE 650 MG TABLET PO (08:54)
[2025-01-23] MEDS: FAMOTIDINE 20 MG TABLET PO (08:54)
[2025-01-23] MEDS: THIAMINE 100 MG TABLET PO (08:55)
[2025-01-23] MEDS: BALSAM PERU/CASTOR OIL (Venelex) 60 GM TUBE TOP (08:56)
--- NOTE | 2025-01-23 09:48 | PD.RESPRO ---
Documentation for date of: 01/23/25 Exam Vital Signs Temp Pulse Resp BP Pulse Ox O2 Del Method 98.0 F 77 18 198/87 H 96 Room Air 01/23/25 08:00 01/23/25 08:55 01/23/25 08:00 01/23/25 08:55 01/23/25 08:00 01/23/25 08:00 Objective Labs 01/23/25 05:00 01/23/25 05:00 Labs: Laboratory Results - last 24 hr 01/23/25 05:00 WBC 4.2 RBC 4.27 L Hgb 10.1 L Hct 35.3 L MCV 83 MCH 23.7 L MCHC 28.6 L RDW Std Deviation 64.7 H Plt Count 243 D Neut % (Auto) 65 Lymph % (Auto) 16 [place] % (Auto) 12 Eos % (Auto) 4 Baso % (Auto) 2 Neut # (Auto) 2.7 Lymph # (Auto) 0.7 L [place] # (Auto) 0.5 Eos # (Auto) 0.2 Baso # (Auto) 0.1 Immature Gran # (Auto) 0.06 H Absolute Nucleated RBC 0.00 Immature Gran % 1 H Nucleated RBC % 0 Sodium 141 Potassium 4.1 Chloride 107 Carbon Dioxide 22.8 Anion Gap 11 BUN 33 H Creatinine 2.6 H Estim Creat Clear Calc 17.4 L eGFR 23 L BUN/Creatinine Ratio 13 Glucose 85 Calculated Osmolality 287 Calcium 8.6 Corrected Calcium 9.2 Phosphorus 3.4 Magnesium 1.6 Total Bilirubin 0.4 AST 15 ALT < 7 L Alkaline Phosphatase 50 Total Protein 5.3 L Albumin 3.3 L Globulin 2.0 L Albumin/Globulin Ratio 1.7 ABG Interpretation ABG results: 01/17/25 15:32 ABG pH 7.44 ABG pCO2 34 ABG pO2 65 L ABG HCO3 23 ABG O2 Saturation 93 ABG Base Excess 0 Quality Measures Quality Measures VTE prophylaxis Assessment & Plan Assessment Current Active Medications: Generic Name Dose Route Start Last Admin Trade Name Freq PRN Reason Stop Dose Admin Acetaminophen 650 mg 01/17/25 17:27 Acetaminophen 325 Mg Tablet PO 02/16/25 17:26 Q6H PRN Fever >100.4, mild pain 1-3 Amlodipine Besylate 10 mg 01/23/25 09:00 01/23/25 08:55 Amlodipine Besylate 5 Mg Tablet PO 02/22/25 08:59 10 mg QDAY YELENA Administration Balsam Sidra/[place] Oil 0 gm 01/22/25 21:00 01/23/25 08:56 Balsam [place] Oil (Venelex) 60 Gm Tube TOP 02/21/25 20:59 1 applicatio BID YELENA Administration Docusate Sodium 100 mg 01/17/25 17:45 01/23/25 08:53 Docusate Sod 100 Mg Capsule PO 02/16/25 17:44 100 mg QDAY YELENA Administration Protocol Famotidine 20 mg 01/23/25 09:00 01/23/25 08:54 Famotidine 20 Mg Tablet PO 02/22/25 08:59 20 mg QOD YELENA Administration Furosemide 20 mg 01/21/25 09:00 01/23/25 08:55 Furosemide 20 Mg Tablet PO 02/20/25 08:59 20 mg QAM YELENA Administration Heparin Sodium (Porcine) 5,000 unit 01/20/25 14:00 01/23/25 05:17 Heparin Sod Inj 5000 Unit/Ml Vial SC 02/03/25 13:59 5,000 unit Q8HR YELENA Administration Hydralazine HCl 10 mg 01/19/25 13:08 01/23/25 00:27 Hydralazine Inj 20 Mg/Ml Vial IVP 02/18/25 13:07 10 mg Q6HR PRN Administration Hypertension Hydralazine HCl 50 mg 01/23/25 14:00 Hydralazine Hcl 25 Mg Tablet PO 02/22/25 13:59 TID YELENA Levothyroxine Sodium 75 mcg 01/18/25 06:00 01/23/25 05:15 Levothyroxine Sodium 25 Mcg Tablet PO 02/17/25 05:59 75 mcg ACBR YELENA Administration Lidocaine 1 patch 01/18/25 11:30 01/22/25 12:57 Lidocaine 5% 1 Patch TOP 02/17/25 11:29 1 patch UD YELENA Administration Protocol Lisinopril 40 mg 01/19/25 09:00 01/23/25 08:54 Lisinopril 20 Mg Tablet PO 02/18/25 08:59 40 mg QDAY YELENA Administration Metoprolol Succinate 50 mg 01/21/25 09:00 01/23/25 08:53 Metoprolol Succinate Xl 25 Mg Tabcr PO 02/20/25 08:59 50 mg QDAY YELENA Administration Ondansetron HCl 4 mg 01/17/25 17:33 Ondansetron Inj 2 Mg/Ml Inj 2 Ml IVP 02/16/25 17:32 Q6H PRN NAUSEA OR VOMITING Protocol Pharmacy Consult 1 each 01/21/25 17:17 Pharmacy Renal Dose Adjustment 1 Ea XX 02/20/25 17:16 PRN PRN CONSULT Sodium Bicarbonate 650 mg 01/20/25 09:00 01/23/25 08:54 Sodium Bicarbonate 650 Mg Tablet PO 02/19/25 08:59 650 mg BID YELENA Administration Thiamine HCl 100 mg 01/17/25 19:30 01/23/25 08:55 Thiamine 100 Mg Tablet PO 02/16/25 19:29 100 mg QDAY YELENA Administration
--- NOTE | 2025-01-23 11:19 | ESDS_ITS ---
<Statement entered by Barber Garcia MD - 01/23/25 20:55> I saw and examined patient personally and supervised PGY 1 resident, Dr. George with formulating a management plan. I agree with the documentation as listed below. Plan of care discussed with Attending Dr. Terence Garcia MD PGY 2 Disclaimer: This note was dictated by speech recognition. Minor errors in property underwriter may be present due to voice recognition software. Planned Discharge Date 01/23/25 DS: Providers Provider Date of admission: 01/17/25 17:39 Primary care physician: Mik Mckeon MD Admitting Provider: Sanjiv Zhou DO Attending Provider on Admission: Brian Pratt MD Consults: 01/18/25 09:27 Referral Physical Therapy Routine Comment: Physician Instructions: Instructions: L2 fracture. ?back brace 01/18/25 11:22 Referral Wound Care Routine Comment: 01/19/25 06:22 Referral Wound Care Routine Comment: stage 3 pressure injury to lower back 01/20/25 12:22 Referral - [facility] Routine Service Needed for Transfer: Neurosurgery Addl Comments:: Subacute/acute severe compression fracture of L1 vertebral body - Possible compression of conus medullaris L5-S1 3 mm central lumbar disc bulge and mild bilateral L5 ganglionic compression 01/20/25 12:23 Referral - [facility] Stat Service Needed for Transfer: Neurosurgery Addl Comments:: Need neurosurgery, assessment of subacute/acute L1 Compression fracture. MRI pending Attending Provider on DC: Brian Pratt MD Discharging Provider: Robert George DO DS: Diagnosis Problem List Completed Was Problem List Reviewed/Reconciled?: Yes Hospital Course Hospital Course Hospital course: Summary: Patient is a 89-year-old male past medical history significant for primary hypertension, hypothyroidism, CKD follows with Dr. Gloria, myelodysplastic syndrome follows with Dr. Olivares, CHF, paroxysmal atrial fibrillation on amiodarone who presented on 01/17/25 with a chief complaint of chills and left arm pain. ER: In the ED, Vitals showing hypertensive at 160/60, labs notable WBC 13.0, Hbg 10.6, Hct 34.5. D-dimer 2690. BMP BUN 46, Cr 3.2. eGFR 18. CRP 1.5, Pro-Richard 1.16. BNP 621. 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 Hospital: During patient's hospital course, he was treated with IV Rocephin and IV doxycyline for his infectious presentation that was later determined to be due to left arm cellulitis and subsequent Moraxella catarrhalis bacteremia. Patient's blood pressure was markedly elevated throughout his entire admission and treated with PO lisinopril, hydralazine, metoprolol, amlodipine, and furosemide. He was also placed on CIWA due to his reported drinking history. Due to patient's reported ground-level fall on 11/14, he underwent lumbar spine XR, CT, and finally MRI which found a subacute severe compression fracture of L1, retropulsion of the posterior superior margin of L1 7 mm contiguous with the cauda equina, and moderate overall spinal stenosis of L3-L4. Patient was not noted to have any symptoms of conus medullaris or other neurological deficits that could indicate spinal compression. By 01/22, patient was deemed clinically stabilized and an attempt was made to discharge him home after [facility] Neurosurgery evaluated his case and recommended outpatient follow-up for his severe L1 compression fracture. However, his systolic blood pressure was noted to be in the 180s at that time so he was held for better control of his blood pressure and then discharged instead on 01/23 after it had improved. Patient is safe to discharge to home. Further discharge instructions below. Instructions: -Levofloxacin 500 mg every other day starting January 24, 2025 for 4 additional doses -New dose of Amlodipine 10 mg once daily, stop your amlodipine 5 mg once daily. Amlodipine is for your blood pressure. - New dose of Hydralazine -Check your Blood pressure daily and keep a record for your Primary doctor -Continue vitamin B1 as needed, follow up with your primary care provider. -Continue all other medications as prescribed. --Please follow up with your primary care provider within one week of discharge -If your symptoms worsen,please seek immediate medical attention and return to your nearest emergency room -If you do not have a primary care provider, you may follow up at the [facility] at [address], [place] [address], Phone #Moraxella catarrhalis bacteremia 2/2 cellulitis, improving #Subacute/acute L1 vertebral body fracture #SIRS #Hypertensive urgency #Myelodysplastic syndrome #Paroxysmal atrial fibrillation #CKD #Hypothyroidism #CAD s/p CABG #Chronic alcohol use #Primary hypertension Status at Discharge Cognitive/Behavioral Status at Discharge: stable Functional Status at Discharge: independent ambulation Overall Status at Discharge: patient is back to baseline Patient's care plan was discussed with my attending, Dr. Pratt, and senior resident, Dr. Garcia. Robert George, DO Internal Medicine, PGY-1 Time Spent with Patient Time attestation: Total time spent providing and/or coordinating discharge services: 38 min Time spent: Greater than 30 minutes Exam Vital Signs Temp Pulse Resp BP Pulse Ox O2 Del Method 98.0 F 77 18 170/73 H 96 Room Air 01/23/25 08:00 01/23/25 08:55 01/23/25 08:00 01/23/25 10:16 01/23/25 08:00 01/23/25 08:00 Narrative Exam General: No acute distress, well nourished Eye: PERRL, EOMI, normal conjunctiva, no scleral icterus HENT: Normocephalic, atraumatic, normal hearing, pink and moist mucous membranes, no oral lesions in mouth, throat shows no erythema Neck: Supple, non-tender, no JVD, no lymphadenopathy Lungs: Clear to auscultation anteriorly and posteriorly RLL shows expiratory wheezing, non-labored respirations, symmetric chest rise, no use of accessory muscles Heart: Normal S1 and S2, no S3 or S4 appreciated. Normal rate and regular rhythm, no murmurs, rubs gallops, or edema. Peripheral pulses intact bilaterally, capillary refill brisk distally Abdomen: Soft, non-tender, non-distended, normal bowel sounds. No guarding or rebound tenderness. Musculoskeletal: Normal range of motion and strength. Skin: Skin is warm, dry, no rashes or lesions. Neurologic: Alert, awake and oriented x3. CN II-XII grossly intact. No focal neuro deficits. No signs of meningeal irritation noted. No signs of conus medullaris including saddle anesthesia, bowel incontinence, or LE weakness or paresthesia. Psychiatric: Cooperative, appropriate mood and affect Discharge Plan Plan Patient Disposition: HOME (Self Care) Patient condition on transfer: Stable Care Plan Goals: Instructions: -Levofloxacin 500 mg every other day starting January 24, 2025 for 4 additional doses -New dose of Amlodipine 10 mg once daily, stop your amlodipine 5 mg once daily. Amlodipine is for your blood pressure. - New dose of Hydralazine -Check your Blood pressure daily and keep a record for your Primary doctor -Continue vitamin B1 as needed, follow up with your primary care provider. -Continue all other medications as prescribed. --Please follow up with your primary care provider within one week of discharge -If your symptoms worsen,please seek immediate medical attention and return to your nearest emergency room -If you do not have a primary care provider, [facility] [address], [place] [address], Prescriptions/Referrals Prescriptions/Med Rec: New levofloxacin 500 mg tablet 500 mg PO .QOD 4 Days Qty: 4 0RF Rx Instructions: First dose to start on 01/24/2025 and every other day until you finish a total of 4 days. amlodipine 10 mg tablet 10 mg PO QDAY 90 Days Qty: 90 0RF metoprolol succinate 25 mg Tablet Extended Release 24 Hr 50 mg PO QDAY 90 Days Qty: 180 0RF thiamine mononitrate (vit B1) 100 mg Tablet 100 mg PO QDAY 90 Days Qty: 90 0RF hydralazine 50 mg tablet 50 mg PO TID 30 Days Qty: 90 0RF (DME) blood pressure monitor [Blood Pressure Kit] Kit See Rx Instructions .Route Qty: 1 0RF Rx Instructions: As directed (DME) Blood Pressure Cuff [facility] See Rx Instructions .Route Qty: 1 0RF Rx Instructions: As directed Continued sodium bicarbonate 650 mg tablet 650 mg PO BID hydrocodone-acetaminophen 5-325 mg tablet 1 tab PO PRN PRN (Reason: pain (scale score 4-6)) atorvastatin 40 mg tablet 40 mg PO QDAY furosemide 40 mg tablet 40 mg PO QDAY levothyroxine 75 mcg tablet 75 mcg PO QDAY lisinopril 40 mg tablet 40 mg PO QDAY Discontinued amlodipine 5 mg tablet 5 mg PO QDAY Referrals: [facility] [Outside] Mik Mckeon MD [Primary Care Provider] Patient/Caregiver Discharge Instructions Education Materials: ED High Blood Pressure ... Print Language: Wolof Stand Alone Forms: Keren Award Info., Patient Portal Info Letter Discharge Order Discharge Orders: Discharge (Routine); Ordered 01/23/25 Ordered By: Barber Garcia Quality Discharge Quality Measures VTE prophylaxis Attestestation MD Attestation I have seen and examined the patient. I was physically present for the foster portions of the services provided including history, physical exam, diagnosis, t reatment plans and orders. I agree with assessment and plan of care as documented by residents. Even though this this note was carefully revised there may still be minor errors in property underwriter due to voice recognition software. Brian Pratt MD
== END 2025-01-23 14:23 | disposition home or self-care (01) | DRG 683 ==
LOC: SERX 13:38 → SERHOLD 17:46 → S3SX 01-18 05:32
PROVIDERS: Admitting Provider Student in an Organized Health Care Education/Training Program; Emergency Provider Emergency Medicine; PCP Family Medicine; Visit Provider Student in an Organized Health Care Education/Training Program
DX: N17.9 Acute kidney failure, unspecified (principal); D84.9 Immunodeficiency, unspecified; I13.0 Hypertensive heart and chronic kidney disease with heart failure and stage 1 through stage 4 chronic kidney disease, or unspecified chronic kidney disease; L03.114 Cellulitis of left upper limb; R78.81 Bacteremia; M48.56XA Collapsed vertebra, not elsewhere classified, lumbar region, initial encounter for fracture; N18.9 Chronic kidney disease, unspecified; I48.0 Paroxysmal atrial fibrillation; D46.9 Myelodysplastic syndrome, unspecified; E03.9 Hypothyroidism, unspecified; I25.10 Atherosclerotic heart disease of native coronary artery without angina pectoris; R16.0 Hepatomegaly, not elsewhere classified; M48.061 Spinal stenosis, lumbar region without neurogenic claudication; I50.9 Heart failure, unspecified; M19.09 Primary osteoarthritis, other specified site; I16.0 Hypertensive urgency; E86.0 Dehydration; B96.89 Other specified bacterial agents as the cause of diseases classified elsewhere; W01.0XXA Fall on same level from slipping, tripping and stumbling without subsequent striking against object, initial encounter; Z95.1 Presence of aortocoronary bypass graft; Z79.899 Other long term (current) drug therapy
CPT/HCPCS: 36415; 36600; 71045; 72110; 72131; 72148; 76700; 80053; 81001; 82436; 82550; 82570; 82803; 83036; 83605; 83735; 83880; 84100; 84133; 84145; 84300; 84443; 84484; 85025; 85379; 85610; 85652; 86140; 86308; 86331; 86635; 87040; 87077; 87502; 87811; 93005; 93225; 93306; 93970; 96365; 96366; 96372; 96375; 99285; J0360; J0696; J1644; J2405; J2543; J3475; J3490; J7999; A9270